=== PATIENT | male | born 1950 | race Caucasian/White ===

== ENCOUNTER 2016-10-11 12:41 | Inpatient (IN) ==
--- NOTE | 2016-10-11 13:50 | EKG Report ---
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
--- NOTE | 2016-10-11 14:22 | XRay Report ---
XR chest 2V Indication: Chest pain Comparison: Chest x-ray dated March 25, 2016 Technique: Frontal and lateral views of the chest Findings: Continued mild cardiomegaly. Chronic change of the lungs without focal consolidation, pleural effusion, or pneumothorax. Osseous and surrounding soft tissue structures appear grossly unchanged. IMPRESSION: Stable chest x-ray. Mild cardiomegaly without neo pulmonary edema. PROCEDURE INTERPRETED AT [facility] DEPARTMENT OF RADIOLOGY Final Report Signed by: Dr Wilmer Nguyen
--- NOTE | 2016-10-11 14:46 | CT Report ---
Referring physician: Axel Cope Exam: CT brain without contrast Date: October 11, 2016 Comparison: CT brain without contrast June 09, 2014 Reason: Syncope The patient is an Emergency Department patient on October 11, 2016. Technique: Axial images of the head were obtained without the use of contrast. Total DLP was 970.1 mGy*cm. Findings: No hydrocephalus or midline shift is present. There is no evidence of an acute infarction, recent intracranial hemorrhage or abnormal mass effect. Note is made of a stable punctate calcification at the cortex of the posterior right parietal lobe. The osseous structures appear intact. There is scattered mucosal thickening within the ethmoid air cells bilaterally. There is also almost complete opacification of the left maxillary sinus and thickening of the left maxillary sinus wall. This suggests chronic sinusitis. A nasal polyp is difficult to exclude within the left nasal cavity, and correlation with direct visualization is recommended. Impression: 1. No acute intracranial process is identified. 2. Chronic left maxillary sinus disease. A nasal polyp is also difficult to exclude within the left nasal cavity, and correlation with direct visualization is recommended. The CT exam was performed using one or more of the following dose reduction techniques: Automated exposure control and adjustment of the mA and/or kV according to patient size. PROCEDURE INTERPRETED AT [facility] DEPARTMENT OF RADIOLOGY Final Report Signed by: Dr. Miroslava Fields
[2016-10-11 15:27] LABS: Basophils # 0.1 10*3/uL (0.0-0.2); Basophils % 1.9 % (0.0-0.8); Eosinophils # 0.5 10*3/uL (0.0-0.87); Hemoglobin 14.4 GM/DL (14.0-18.0); Immature Granulocytes % 0.7 %; Immature Granulocytes Absolute 0.04 #; Lymphocytes # 1.5 10*3/uL (1.4-4.0); Lymphocytes % 25.3 % (21.2-54.2); Mean Corpuscular Hemoglobin 30 PG (27-34); Mean Corpuscular Volume 84.6 FL (87-102); Mean Platelet Volume 11.9 FL (9.6-12.0); Monocytes # 0.8 10*3/uL (0.11-0.8); Neutrophils # 2.9 10*3/uL (1.4-7.4); Neutrophils % 50.1 % (38.7-73.9); Platelet Count 250 T/CUMM (130-400); Red Blood Count 4.73 MC/CUMM (3.8-5.5); Red Cell Distribution Width 12.8 % (9.3-17.3); White Blood Count 5.8 T/CUMM (4-12)
[2016-10-11 15:34] LABS: PT Patient Result 10.9 SECS; Partial Thromboplastin Time 24.7 SECS (0-40)
[2016-10-11 15:41] LABS: Alanine Aminotransferase 25 U/L (16-61); Albumin 3.8 G/DL (3.4-5.0); Alkaline Phosphatase 127 U/L (45-117); Aspartate Amino Transferase 26 U/L (0-37); Blood Urea Nitrogen 24 MG/DL (7-18); Calcium 9.5 MG/DL (8.5-10.1); Glucose 302 MG/DL (74-106); Magnesium 1.9 MG/DL (1.8-2.4); Osmolality,Calculated 280.4 MOS/KG (273-304); Potassium 5.9 MMOL/L (3.5-5.1); Sodium 133 MMOL/L (136-145); Total Protein 7.5 G/DL (6.4-8.3); Troponin I Only < 0.015 NG/ML (0.00-0.045)
--- NOTE | 2016-10-11 15:53 | Emergency Department Note ---
IJenny Mantricia, am scribing for, and in the presence of, Axel Cope MD 14:41. Anatoliy Ramires Phillip K, MD, personally performed the services described in this documentation, ascribed by Shimon Alvarado in my presence, and it is both accurate and complete . Arrival - Arrival Chief Complaint: Syncope Stated Complaint: BP low,sugarf 255/276,dizzy,staggering,Heart PT ED Nursing Triage Note: pt was in the kitchen this am and was unable to stand up. pt states that his bs was 255 and blood was going up and down Mode of Arrival: Ambulatory Limitations: No Limitations Source: Patient, Significant other Time Seen by Provider: 10/11/16 13:43 - History of Present Illness HPI Narrative: Pt is a 66 y/o male arriving to ED by EMS with c/o near syncopal episode that onset this morning. Pt reports that he was in the kitchen cooking breakfast and he suddenly became lightheaded, broke out in sweats, and "staggered like he was drunk;" however, pt denies LOC. He states that he thought his blood sugar was low so he then proceeded to "chunk down" a [employer] bar; however, once checking his sugar he realized it was not the cause because it was 255. He did notice his blood pressure was low after checking it. Pt suffers with hypotension and was hospitalized a year ago because of it; pt is not on low blood pressure medications. He has a PMHx of Afib and TIA but denies MT. He states that at the time of lightheadedness, he did not have a headache but has one at time of exam and that deep breaths makes him lightheaded as well. Pt's internal medicine physician assistant is Dr. Hardy and PCP is Dr. Oquendo. He reports no other concerns. Patient had a blood pressure this morning of 90/60 after the episode of near syncope. Patient blood sugar at that time was in the mid 200s. Onset (ago): hour(s) Consistency: constant Severity: mild Severity scale (1-10): 3 Allergies/Adverse Reactions: Allergies Allergy/AdvReac Type Severity Reaction Status Date / Time DORIE Inhibitors Allergy Verified 09/18/15 08:23 Home Medications: Home Medications Medication Instructions Recorded Confirmed Type Carvedilol 25 mg PO BID 08/25/15 10/11/16 History Etodolac 500 mg PO BID W/MEALS 08/25/15 10/11/16 History Ferrous Gluconate 325 mg PO BEDTIME 08/25/15 10/11/16 History Fexofenadine [Priscilla] 180 mg PO DAILY 08/25/15 10/11/16 History Insulin Glargine [Lantus] 100 unit SUBCUT BEDTIME 08/25/15 10/11/16 History Magnesium Oxide 400 mg PO TID 08/25/15 10/11/16 History Metformin HCl 500 mg PO BID W/MEALS 08/25/15 10/11/16 History Diltiazem Cd Cap [Cardizem CD] 240 mg PO DAILY #30 capsule 08/31/15 10/11/16 Rx Aspirin [Aspir-Low] 81 mg PO DAILY 01/31/16 10/11/16 History Clobetasol Propionate [Clobetasol 1 applic TOP BID 01/31/16 10/11/16 History 0.05% Shampoo] Esomeprazole Magnesium [Nexium] 40 mg PO DAILY 01/31/16 10/11/16 History Insulin Lispro [HumaLOG] See Protocol SUBCUT ACHS 01/31/16 10/11/16 History Triamcinolone Acetonide 1 applic TOP BID 01/31/16 10/11/16 History [Triamcinolone 0.1% Cream] hydrALAZINE TAB [Apresoline Tab] 25 mg PO TID 01/31/16 10/11/16 History Cetirizine HCl [Cetirizine Tab] 10 mg PO QAM 10/11/16 10/11/16 History Exenatide Microspheres [Bydureon 2 mg SUBCUT WE 10/11/16 10/11/16 History Pen] Gemfibrozil 600 mg PO BID 10/11/16 10/11/16 History [place]-3S/Dha/Epa/Fish Oil [Fish 1 each PO BID 10/11/16 10/11/16 History Oil 1,200 mg Softgel] Review of System - Review of System 12 point system: reviewed and no additional remarkable complaints except as stated - Review of System Constitutional: Absent: chills, diaphoresis, fever Eyes: Absent: discharge, pain Head/Ears/Nose/Throat: Absent: earache, epistaxis Respiratory: Absent: cough, respiratory distress, wheezing Cardiovascular: Present: syncope (near). Absent: chest pain, palpitations, dyspnea on exertion Gastrointestinal: Absent: abdominal pain, nausea, vomiting, diarrhea Genitourinary male: Absent: urgency, dysuria Musculoskeletal: Absent: arm pain, back pain, leg pain, neck pain Skin: Absent: rash, lesions Neurological: Present: headache, vertigo. Absent: weakness Psychiatric: Absent: anxiety, depression Medical,Surgical,& Family Hx - Medical History Cardio: History of: Cardiac Dysrhythmia (A-Fib, Bradycardia), Cardiovascular Problems (Carodid surg) No history of: Pacemaker Neurology: History of: Peripheral Neuropathy, TIA No history of: Seizures Endocrine: History of: Diabetes Mellitus (IDDM), Dyslipidemia Genitourinary: No history of: Kidney Stones Gastrointestinal: History of: GERD, Gastrointestinal Bleed Musculoskeletal: History of: Amputation Hematology: History of: Anemia - Surgical History Cardiac Surgeries: Patient Denies: Cardiac Catheterization HEENT Surgeries: Surgical HX of: Eye Surgery (cataract ou) Abdominal Surgeries: Surgical HX of: Abdominal Surgery, Cholecystectomy, Colonoscopy Patient denies: Appendectomy, EGD Orthopedic Surgeries: Surgical HX of;: Orthopedic Surgery (left knee surgery) - Family History Family History: Reports;: Family Diabetes, Family Stroke - Social History Smoking Status: Never smoker Frequency of Alcohol Use: None Type of Drug Use: None Exam Vital Signs: Vital Signs Temperature 97.5 F L 10/11/16 13:30 Pulse Rate 79 10/11/16 13:45 Respiratory Rate 20 10/11/16 13:45 Blood Pressure 130/82 10/11/16 13:45 O2 Sat by Pulse Oximetry 97 10/11/16 13:45 - General General appearance: alert, in no apparent distress - Head Head exam: Present: atraumatic, normocephalic, normal inspection - Eye Eye exam: Present: normal appearance, PERRL, EOMI - ENT ENT exam: Present: normal exam, normal oropharynx, mucous membranes moist, TM's normal bilaterally, normal external ear exam - Neck Neck exam: Present: normal inspection, full ROM, trachea midline. Absent: tenderness - Chest Chest inspection: Present: normal inspection, symmetric chest wall rise. Absent : tenderness - Respiratory Respiratory exam: Present: normal lung sounds bilaterally - Cardiovascular Cardiovascular exam: Present: regular rate, normal heart sounds - Abdominal Exam Abdominal exam: Present: soft, normal bowel sounds. Absent: distention, tenderness, guarding, rebound - Extremities Exam Extremities exam: Present: normal inspection, full ROM, normal capillary refill. Absent: tenderness, pedal edema - Back Exam Back exam: Present: normal inspection, full ROM. Absent: tenderness - Neurological Exam Neurological exam: Present: alert, oriented X3, CN II-XII intact, normal gait, reflexes normal - Psychiatric Psychiatric exam: Present: normal affect, normal mood - Skin Skin exam: Present: warm, dry, intact, normal color Results - Labs CBC & BMP: 10/11/16 13:26 10/11/16 13:26 Lab Results: I have reviewed the patients labs Labs: Laboratory Tests 10/11/16 13:41 POC Glucose 294 H - EKG EKG results: interpreted by SIVA (Atrial fibrillation with nonspecific ST-T changes) - Diagnostic Findings Procedure: Chest x-ray: report reviewed by me (Stable chest x-ray. Mild cardiomegaly without neo pulmonary edema. ), CT: report reviewed by me (CT head scan shows no acute intracranial abnormality.) Disposition Clinical Impression: Near syncope, Hyperkalemia, Hypotension Case discussed with: patient, patient's physician Disposition: Still a Patient Condition: Guarded Additional Instructions: Admit to the hospitalist.
[2016-10-11] MEDS ORDERED: ONDANSETRON 4 MG/2 ML VIAL IV PRN (16:29)
[2016-10-11] MEDS ORDERED: GLUCAGON 1 MG VIAL IM PRN (16:29)
[2016-10-11] MEDS ORDERED: INSULIN REGULAR 100 UNIT/ML IV STA (16:29)
[2016-10-11] MEDS ORDERED: DEXTROSE 50% 25 GM/50 ML VIAL IV STA (16:29)
[2016-10-11] MEDS ORDERED: ACETAMINOPHEN 325 MG TABLET PO PRN (16:29)
[2016-10-11] MEDS ORDERED: SODIUM BICARBONATE 50 MEQ/50 ML VIAL IV STA (16:29)
[2016-10-11] MEDS ORDERED: SODIUM CHLORIDE 0.9% 150 ML IV STA (16:29)
[2016-10-11] MEDS ORDERED: DEXTROSE 50% 25 GM/50 ML VIAL IV PRN (16:29)
--- NOTE | 2016-10-11 16:50 | Hospitalist History & Physical ---
Assessment and Plan (1) Atrial fibrillation Status: Acute Current Visit: No (2) Hyperkalemia Status: Acute Current Visit: No (3) Near syncope Status: Acute Current Visit: Yes (4) Renal insufficiency Status: Resolved Assessment and plan: We will plan for this patient will be admission to telemetry. I have talked to the nurses in the ER and they are to to give him normal saline with amp of bicarb amp of D50 and 10 units of Humulin R insulin. Will recheck potassium in the morning. I reviewed his medications I cannot find the source of his hyperkalemia. Cardiology will be consulted for this patient he has established relationship with Dr. Hardy. 2D echo and carotid Dopplers will be ordered on this patient given his history of near syncope. Patient is not on anticoagulation currently. He was previously on it but it was discontinued. Will defer to cardiology EKG is consistent with atrial fibrillation. Current Visit: No History of Present Illness Chief complaint: Near syncope History of present illness: Mr. Avila is a 66 year old male with past medical history significant for atrial fibrillation diabetes hyperkalemia and seasonal allergies was in his normal state of health until today. Patient was standing up cooking breakfast. Patient reports all of a sudden he went dizzy and wobbly like he was drunk. He felt uneasy on his feet. Patient thought it might be his sugar he was diaphoretic. He ate some candy. His sugar was greater than 200. He ended up coming to our hospital for further evaluation. He sees Dr. Hardy with cardiology and Dr. Oquendo his primary care provider. Patient was found to be hyperkalemic with a 5.9 I was consulted to admit the patient through the emergency room for near syncopal episode. Home Medications Medication Instructions Recorded Confirmed Type Carvedilol 25 mg PO BID 08/25/15 10/11/16 History Etodolac 500 mg PO BID W/MEALS 08/25/15 10/11/16 History Ferrous Gluconate 325 mg PO BEDTIME 08/25/15 10/11/16 History Fexofenadine [Priscilla] 180 mg PO DAILY 08/25/15 10/11/16 History Insulin Glargine [Lantus] 100 unit SUBCUT BEDTIME 08/25/15 10/11/16 History Magnesium Oxide 400 mg PO TID 08/25/15 10/11/16 History Metformin HCl 500 mg PO BID W/MEALS 08/25/15 10/11/16 History Diltiazem Cd Cap [Cardizem CD] 240 mg PO DAILY #30 capsule 08/31/15 10/11/16 Rx Aspirin [Aspir-Low] 81 mg PO DAILY 01/31/16 10/11/16 History Clobetasol Propionate [Clobetasol 1 applic TOP BID 01/31/16 10/11/16 History 0.05% Shampoo] Esomeprazole Magnesium [Nexium] 40 mg PO DAILY 01/31/16 10/11/16 History Insulin Lispro [HumaLOG] See Protocol SUBCUT ACHS 01/31/16 10/11/16 History Triamcinolone Acetonide 1 applic TOP BID 01/31/16 10/11/16 History [Triamcinolone 0.1% Cream] hydrALAZINE TAB [Apresoline Tab] 25 mg PO TID 01/31/16 10/11/16 History Cetirizine HCl [Cetirizine Tab] 10 mg PO QAM 10/11/16 10/11/16 History Exenatide Microspheres [Bydureon 2 mg SUBCUT WE 10/11/16 10/11/16 History Pen] Gemfibrozil 600 mg PO BID 10/11/16 10/11/16 History [place]-3S/Dha/Epa/Fish Oil [Fish 1 each PO BID 10/11/16 10/11/16 History Oil 1,200 mg Softgel] Allergies Allergy/AdvReac Type Severity Reaction Status Date / Time DORIE Inhibitors Allergy Verified 09/18/15 08:23 Medical,Surgical,& Family Hx - Medical History Cardio: History of: Cardiac Dysrhythmia (A-Fib, Bradycardia), Cardiovascular Problems (Carodid surg) No history of: Pacemaker Neurology: History of: Peripheral Neuropathy, TIA No history of: Seizures Endocrine: History of: Diabetes Mellitus (IDDM), Dyslipidemia Genitourinary: No history of: Kidney Stones Gastrointestinal: History of: GERD, Gastrointestinal Bleed Musculoskeletal: History of: Amputation Hematology: History of: Anemia - Surgical History Cardiac Surgeries: Patient Denies: Cardiac Catheterization HEENT Surgeries: Surgical HX of: Eye Surgery (cataract ou) Abdominal Surgeries: Surgical HX of: Abdominal Surgery, Cholecystectomy, Colonoscopy Patient denies: Appendectomy, EGD Orthopedic Surgeries: Surgical HX of;: Orthopedic Surgery (left knee surgery) - Family History Family History: Reports;: Family Diabetes, Family Stroke - Social History Smoking Status: Never smoker Frequency of Alcohol Use: None Type of Drug Use: None 12 point system: reviewed and no additional remarkable complaints except as stated Exam - Constitutional Vitals: - General General appearance: alert, in no apparent distress - Head Head exam: Present: atraumatic, normocephalic, normal inspection - Eye Eye exam: Present: normal appearance, PERRL, EOMI - ENT ENT exam: Present: normal exam, normal oropharynx, mucous membranes moist, TM's normal bilaterally, normal external ear exam - Neck Neck exam: Present: normal inspection, full ROM, trachea midline. Absent: tenderness - Chest Chest inspection: Present: normal inspection, symmetric chest wall rise. Absent : tenderness - Respiratory Respiratory exam: Present: normal lung sounds bilaterally - Cardiovascular Cardiovascular exam: Present: Tachycardic - Abdominal Exam Abdominal exam: Present: soft, normal bowel sounds. Absent: distention, tenderness, guarding, rebound - Extremities Exam Extremities exam: Present: normal inspection, full ROM, normal capillary refill. Absent: tenderness, pedal edema - Back Exam Back exam: Present: normal inspection, full ROM. Absent: tenderness - Neurological Exam Neurological exam: Present: alert, oriented X3, CN II-XII intact, normal gait, reflexes normal - Psychiatric Psychiatric exam: Present: normal affect, normal mood - Skin Skin exam: Present: warm, dry, intact, normal color Results - Labs CBC & BMP: 10/11/16 13:26 10/11/16 13:26
[2016-10-11] MEDS ORDERED: DEXTROSE IV ONE (17:00)
[2016-10-11] MEDS ORDERED: SODIUM ACETATE IV ONE (17:00)
[2016-10-11] MEDS ORDERED: [UNRECOGNIZED DRUG - OTHER] IV ONE (17:00)
[2016-10-11] MEDS ORDERED: INSULIN REGULAR IV ONE (17:00)
--- NOTE | 2016-10-11 17:38 | Ultrasound Report ---
Referring physician: Kofi Michael Exam: Carotid ultrasound Date: October 11, 2016 Comparison: Carotid ultrasound February 26, 2014 Reason: Near syncope Technique: Duplex scan of the carotid arteries was performed using B-Mode/grayscale imaging and Doppler spectral analysis and color flow. Ultrasound images were captured and stored. Findings: There is calcified plaque at the carotid arteries bilaterally, most prominent at the carotid bifurcations. There is a history of right endarterectomy. The right ICA measures 0.40 cm in diameter, and the left ICA measures 0.59 cm in diameter. The peak systolic velocities are as follows: Right CCA: 43 cm/s Right proximal ICA: 52 cm/s Right mid ICA: 130 cm/s Right distal ICA: 114 cm/s Right ECA: 76 cm/s Left CCA: 47 cm/s Left proximal ICA: 34 cm/s Left distal ICA: 83 cm/s Left ECA: 384 cm/s The peak systolic ICA/CCA velocity ratios are as follows: 3.0 on the right and 1.7 on the left. Antegrade flow is present within both vertebral arteries. Impression: 1. 50-69% stenosis of the right cervical ICA. 2. Less than 50% stenosis of the left cervical ICA. 3. There is elevated velocity at the left ECA, suggesting stenosis. 4. The Society of Radiologists in Ultrasound consensus conference criteria was used. PROCEDURE INTERPRETED AT [facility] DEPARTMENT OF RADIOLOGY Final Report Signed by: Dr. Miroslava Fields
[2016-10-11] MEDS: INSULIN REGULAR 100 UNIT/ML SUBCUT SCH ×2 (19:11→21:46)
[2016-10-11] MEDS: ENOXAPARIN 40 MG/0.4 ML SYRINGE SUBCUT SCH (19:12)
[2016-10-11] MEDS: metFORMIN 500 MG TABLET PO SCH (19:12)
[2016-10-11] MEDS: MAGNESIUM OXIDE 400 MG TABLET PO SCH (21:42)
[2016-10-11] MEDS: GEMFIBROZIL 600 MG TABLET PO SCH (21:43)
[2016-10-11] MEDS: hydrALAZINE 25 MG TABLET PO SCH (21:43)
[2016-10-11] MEDS: OMEGA 3 ACID ETHYL ESTERS 1 GM CAPSULE PO SCH (21:44)
[2016-10-11] MEDS: CARVEDILOL 25 MG TABLET PO SCH (21:44)
[2016-10-11] MEDS: FERROUS GLUCONATE 324 MG TABLET PO SCH (21:45)
[2016-10-11] MEDS: INSULIN LISPRO 100 UNIT/ML SUBCUT SCH (21:46)
[2016-10-11] MEDS: INSULIN GLARGINE 100 UNIT/ML SUBCUT SCH (21:47)
[2016-10-11] MEDS: TRIAMCINOLONE 0.1% CREAM 15 GM TUBE TOP SCH (21:50)
[2016-10-11 21:59] LABS: Troponin I Only < 0.015 NG/ML (0.00-0.045)
[2016-10-12 01:10] LABS: Troponin I Only < 0.015 NG/ML (0.00-0.045)
[2016-10-12 04:52] LABS: Basophils # 0.1 10*3/uL (0.0-0.2); Basophils % 2.1 % (0.0-0.8); Eosinophils # 0.5 10*3/uL (0.0-0.87); Eosinophils % 10.3 % (0.00-10.9); Hematocrit 40.9 VOL% (42.0-52.0); Hemoglobin 14.5 GM/DL (14.0-18.0); Immature Granulocytes % 0.8 %; Immature Granulocytes Absolute 0.04 #; Lymphocytes # 1.8 10*3/uL (1.4-4.0); Lymphocytes % 37.2 % (21.2-54.2); Mean Corpuscular HGB Conc 35.5 GM/DL (32-36); Mean Corpuscular Hemoglobin 30 PG (27-34); Mean Corpuscular Volume 84.5 FL (87-102); Mean Platelet Volume 10.8 FL (9.6-12.0); Monocytes # 0.8 10*3/uL (0.11-0.8); Neutrophils # 1.6 10*3/uL (1.4-7.4); Neutrophils % 33.6 % (38.7-73.9); Platelet Count 245 T/CUMM (130-400); Red Blood Count 4.84 MC/CUMM (3.8-5.5); Red Cell Distribution Width 12.6 % (9.3-17.3); White Blood Count 4.9 T/CUMM (4-12)
[2016-10-12 05:13] LABS: Band Neutrophils 3 % (0-10); Eosinophils 10 % (0-10); Hypochromasia 1+; Lymphocytes 39 % (20-55); Platelet Estimate Adequate; Segmented Neutrophils 37 % (50-85); Total Cells Counted 100
[2016-10-12 05:20] LABS: Calcium 9.2 MG/DL (8.5-10.1); Osmolality,Calculated 285.7 MOS/KG (273-304); Potassium 4.3 MMOL/L (3.5-5.1)
[2016-10-12] MEDS ORDERED: PANTOPRAZOLE 40 MG TABLET PO SCH (09:00)
[2016-10-12] MEDS: INSULIN LISPRO 100 UNIT/ML SUBCUT SCH ×3 (09:12→21:33)
[2016-10-12] MEDS: INSULIN REGULAR 100 UNIT/ML SUBCUT SCH (09:14)
[2016-10-12] MEDS: metFORMIN 500 MG TABLET PO SCH ×3 (09:18→17:54)
[2016-10-12] MEDS ORDERED: GLUCAGON 1 MG VIAL IM PRN (09:28)
[2016-10-12] MEDS ORDERED: DEXTROSE 50% 25 GM/50 ML VIAL IV PRN (09:28)
[2016-10-12] MEDS: PANTOPRAZOLE 40 MG TABLET PO SCH (10:30)
[2016-10-12] MEDS: CETIRIZINE 10 MG TABLET PO SCH (10:30)
[2016-10-12] MEDS: OMEGA 3 ACID ETHYL ESTERS 1 GM CAPSULE PO SCH ×2 (10:32→21:37)
[2016-10-12] MEDS: MAGNESIUM OXIDE 400 MG TABLET PO SCH ×3 (10:32→21:31)
[2016-10-12] MEDS: GEMFIBROZIL 600 MG TABLET PO SCH ×2 (10:33→21:30)
[2016-10-12] MEDS: DILTIAZEM CD 240 MG CAPSULE PO SCH (10:34)
[2016-10-12] MEDS: CARVEDILOL 25 MG TABLET PO SCH ×2 (10:34→21:31)
[2016-10-12] MEDS: hydrALAZINE 25 MG TABLET PO SCH ×3 (10:35→21:31)
[2016-10-12] MEDS: ASPIRIN EC 81 MG TABLET PO SCH (10:35)
[2016-10-12] MEDS: FEXOFENADINE 180 MG TABLET PO SCH (10:35)
[2016-10-12] MEDS: TRIAMCINOLONE 0.1% CREAM 15 GM TUBE TOP SCH ×2 (10:36→21:33)
--- NOTE | 2016-10-12 16:37 | Hospitalist Progress Note ---
Assessment and Plan (1) Atrial fibrillation Status: Chronic Assessment and plan: s/p pacer rate controlled on coreg and dilt Current Visit: No (2) Renal insufficiency Status: Resolved Assessment and plan: repeat bmp in am, cont hydration Current Visit: No (3) Hypertension Status: Acute Assessment and plan: controlled Current Visit: No (4) Near syncope Status: Acute Assessment and plan: await input from cardiology, echo done but results pending, carotid disease but doubt significant to cause syncope Current Visit: Yes (5) Hyperkalemia Status: Acute Assessment and plan: 24 hour potassium, creatinine, protein, Dr Grigsby for input, ?coreg, ?RTA Current Visit: Yes Hospitalist: Subjective Interval history: Near syncope, will await input from Cardiology, reoccurring problems with Hyperkalemia, Dr. Grigsby has seen him before for emergency dialysis. Not sure why potassium remains high does not correlate with creatinine. Exam - Constitutional Vitals: Period Temp Pulse Resp BP Sys/[place] Pulse Ox Last 24 Hr 96.0 F-97.3 F 86-105 18-20 118-165/56-102 92-98 Exam: Heart Rate-[RRR] Lungs-[CTAB] GI-[+bs soft, NT] Ext-[no edema] Neuro [Motor 5/5], [alert and oriented times 3] psych [normal mood and affect] General [no acute distress] Results - Labs CBC & BMP: 10/12/16 03:50 10/12/16 03:50 Lab Results: I have reviewed the past 24 hour labs - Diagnostic Findings Procedure: CT: report reviewed by me (head ct negative ), Ultrasound: report reviewed by me (carotid stenosis )
[2016-10-12] MEDS ORDERED: ETODOLAC PO SCH (17:00)
[2016-10-12] MEDS ORDERED: BYDUREON SUBCUT SCH (17:30)
--- NOTE | 2016-10-12 17:44 | ECHO Report ---
Arnie Avila Exam Date: 10/12/2016 10:03 Referring Physician: Technologist: Korin Cook JORY Age: 66 Ht (in): 68 Wt (lb): 210 Gender: M Exam Location: [facility] Echo Indications: Atrial fibrillation, Hyperkalemia, Near syncope, IDDM BP: 138 / 64 HR: 86 Rhythm: Atrial fibrillation Technical Quality: Fair IMPRESSIONS 1. Left ventricle is normal size and systolic function ejection fraction 55%. There is mild concentric left ventricular hypertrophy. 2. Right ventricle and atrium are normal size and systolic function. 3. Left atrium is mildly dilated. 4. Aortic valve is minimally sclerotic but without any Doppler abnormalities. 5. Mitral valve is morphologically normal with trace to mild regurgitation. 6. Tricuspid and pulmonic valve are anatomically functioning normal. MEASUREMENTS (Male / Female) Normal Values 2D ECHO LV Diastolic Diameter PLAX 4.5 cm 4.2 - 5.9 / 3.9 - 5.3 cm LV Systolic Diameter PLAX 3.3 cm LV Fractional Shortening PLAX 28.1 % IVS Diastolic Thickness 1.2 cm 0.6 - 1.0 / 0.6 - 0.9 cm LVPW Diastolic Thickness 1.2 cm 0.6 - 1.0 / 0.6 - 0.9 cm RV Internal Dim ED PLAX 3.5 cm Aortic Root Diameter 3.3 cm LA Systolic Diameter LX 4.4 cm 3.0 - 4.0 / 2.7 - 3.8 cm FINDINGS Left Ventricle Normal left ventricular cavity size. Mild left ventricular hypertrophy. Left ventricular ejection fraction is estimated at 55 %. Right Ventricle The right ventricle is normal in size and function. Right Atrium The right atrium is normal in size. Left Atrium The left atrium is mildly enlarged. Mitral Valve Morphologically normal mitral valve. Trace to mild mitral valve regurgitation. Aortic Valve Aortic valve is a tricuspid structure with sclerosis and without stenosis or regurgitation. Tricuspid Valve Morphologically normal tricuspid valve without significant stenosis or regurgitation. Pulmonary artery systolic pressure is normal. Pulmonic Valve Morphologically normal pulmonic valve. Trace pulmonary valve regurgitation. Pericardium Normal pericardium without effusion. Aorta Normal ascending aorta dimension. Kofi Willson MD (Electronically Signed) Final Date: 12 Oct 2016 17:43
[2016-10-12] MEDS: ENOXAPARIN 40 MG/0.4 ML SYRINGE SUBCUT SCH (17:52)
[2016-10-12] MEDS: SODIUM CHLORIDE 0.45% 1,000 ML IV SCH (17:54)
--- NOTE | 2016-10-12 18:20 | Cardiology Consult Note ---
Alice Ramires April RN, am scribing for, and in the presence of, Kofi Willson MD 18:17. Assessment and Plan - Time spent with patient Time spent with patient: Greater than 30 minutes (Due to assessment, planning, documentation, medication review) (1) Hyperkalemia Status: Acute Assessment and plan: This is acute and may have been the cause of his symptomatology. It is interesting that he has not had a second episode of hyperkalemia spontaneously. Certainly think some questionable be some his medications but most the medications on is not typically associated with hyperkalemia. We do await nephrology is recommendations and their ideas. Current Visit: Yes (2) Near syncope Status: Acute Assessment and plan: This is unclear the etiology. Certainly the irizarry-white is irizarry to hospitalization a event monitor at home may shed some light on this. In the possibility of a Linq monitor in the future. Current Visit: Yes (3) Atrial fibrillation Status: Chronic Assessment and plan: This is chronic and ventricular response appears to well controlled. 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 Avila is a 66 year old male who is routinely followed by Dr. Hardy for history of chronic persistent atrial fibrillation, hypertension, hyperlipidemia , diabetes mellitus, peripheral vascular disease, anemia with GI bleeding from hemorrhoids, and obstructive sleep apnea. He says he does use his CPAP at night. He was hospitalized in August 2015 for hyperkalemia, acute renal failure , and bradycardia with heart rates as low as the 20s. He required temporary pacemaker and temporary dialysis. Rhythm was corrected with normalization of the potassium. Patient was sent home on a 30 day event monitor which showed chronic age fibrillation with 2.1-2.5 second pauses occurring during nocturnal hours. Echo done August 2015 with ejection fraction 60%. Surgical history includes right carotid endarterectomy, cholecystectomy, left knee surgery, tonsillectomy, bilateral cataract, temporary dialysis catheter, and temporary pacemaker. Family history is positive for father with CAD, mother with CAD cancer and hypertension. He is a former smoker who smoked in the remote past. He lives at home with his . Mr. Avila was in his usual state of health until yesterday. He was in his kitchen cooking and became dizzy, weak, and diaphoretic. He felt like he was about to pass out and propped on the refrigerator. He reports he never lost consciousness. He presented to the emergency department for further evaluation. On presentation to the emergency department his blood sugar was greater than 200. His potassium was found to be 5.9 and he was given an insulin cocktail. He denies having any chest pain, shortness of breath, or palpitations with this episode on the recent past. Cardiac biomarkers have been negative 3. His creatinine was elevated at 1.4. EKG on admission showed atrial fibrillation with heart rate of 81. Carotid ultrasound done yesterday with 50-69% stenosis of the right cervical ICA and less than 50% stenosis of the left cervical ICA. CT of the head done yesterday showed no acute intracranial process. Echo is pending. Patient is currently ambulating in room in no acute distress. He reports he feels much better without any feelings of syncope or near syncope this morning. Denies any chest pain, shortness of breath, palpitations, or dizziness at this point. Potassium this morning is 12.3, creatinine has decreased a bit to 1.2. His blood pressures were elevated on admission, they were better during the night with this morning being 135/90. quality assurance monitor currently shows atrial fibrillation with heart rates in the 90s. 6 Patient personally interviewed and examined and chart reviewed. I agree with the above evaluation and history. This patient had an episode yesterday with of weakness and near syncope that was not accompanied by palpitations chest pain shortness of breath or other symptomatology. This interesting his potassium markedly elevated without being on any real specific potassium replacement worse potassium substitution home is not on any typical medication the usual cause hyperkalemia. He had an episode like this previously with severely elevated potassium that remained unknown for the reason. His renal function is been stable. His cardiac issues of been fairly stable and Dr. Hardy is noted has followed him for his atrial fibrillation. The patient has prior carotid artery disease and right carotid endarterectomy. His carotid Dopplers reveal evidence of bilateral stenosis worse on the right than the left. Based on velocities though his right stenosis is not that severe. Nephrology has been consulted. May be making shed some light on his episodic hyperkalemia. Certainly may need to take a closer look at some of his medications. CC: Heaven Peacock MD - Home Medications and Allergies Home Medications: Home Medications Medication Instructions Recorded Confirmed Type Carvedilol 25 mg PO BID 08/25/15 10/11/16 History Etodolac 500 mg PO BID W/MEALS 08/25/15 10/11/16 History Ferrous Gluconate 325 mg PO BEDTIME 08/25/15 10/11/16 History Fexofenadine [Priscilla] 180 mg PO DAILY 08/25/15 10/11/16 History Insulin Glargine [Lantus] 100 unit SUBCUT BEDTIME 08/25/15 10/11/16 History Magnesium Oxide 400 mg PO TID 08/25/15 10/11/16 History Metformin HCl 500 mg PO BID W/MEALS 08/25/15 10/11/16 History Diltiazem Cd Cap [Cardizem CD] 240 mg PO DAILY #30 capsule 08/31/15 10/11/16 Rx Aspirin [Aspir-Low] 81 mg PO DAILY 01/31/16 10/11/16 History Clobetasol Propionate [Clobetasol 1 applic TOP BID 01/31/16 10/11/16 History 0.05% Shampoo] Esomeprazole Magnesium [Nexium] 40 mg PO DAILY 01/31/16 10/11/16 History Insulin Lispro [HumaLOG] See Protocol SUBCUT ACHS 01/31/16 10/11/16 History Triamcinolone Acetonide 1 applic TOP BID 01/31/16 10/11/16 History [Triamcinolone 0.1% Cream] hydrALAZINE TAB [Apresoline Tab] 25 mg PO TID 01/31/16 10/11/16 History Cetirizine HCl [Cetirizine Tab] 10 mg PO QAM 10/11/16 10/11/16 History Exenatide Microspheres [Bydureon 2 mg SUBCUT WE 10/11/16 10/11/16 History Pen] Gemfibrozil 600 mg PO BID 10/11/16 10/11/16 History [place]-3S/Dha/Epa/Fish Oil [Fish 1 each PO BID 05/09/17 05/09/17 History Oil 1,200 mg Softgel] Allergies/Adverse Reactions: Allergies Allergy/AdvReac Type Severity Reaction Status Date / Time DORIE Inhibitors Allergy Verified 09/18/15 08:23 - Constitutional Constitutional: Present: as per HPI - EENT Eyes: Present: requires corrective lense. Absent: blurry vision, loss of vision Ears: Present: decreased hearing. Absent: ear pain, tinnitus Nose, mouth and throat: Absent: dysphagia, epistaxis, headache(s), neck pain, sore throat - Cardiovascular Cardiovascular: Present: diaphoresis, lightheadedness. Absent: chest pain at rest, chest pain with activity, dyspnea, dyspnea on exertion, edema, radiating jaw, neck or arm pain, orthopnea, palpitations - Respiratory Respiratory: Absent: cough, dyspnea, hemoptysis, dyspnea on exertion, wheezing - Gastrointestinal Gastrointestinal: Present: other (Occasionally has small amount of bleeding from internal hemorrhoids). Absent: abdominal pain, constipation, diarrhea, nausea, vomiting - Genitourinary Genitourinary: Absent: dysuria, hematuria - Musculoskeletal Musculoskeletal: Present: back pain, limited range of motion - Neurological Neurological: Present: dizziness. Absent: abnormal gait, abnormal speech, confusion, frequent falls, headache(s), syncope (Near syncope) - Psychiatric Psychiatric: Absent: anxiety, confusion, depression - Endocrine Endocrine: Absent: fatigue - Hematologic/Lymphatic Hematologic/Lymphatic: Absent: easy bleeding, easy bruising Medical,Surgical,& Family Hx - Medical History Cardio: History of: Cardiac Dysrhythmia (A-Fib, Bradycardia), Cardiovascular Problems (Carotid surg) Neurology: History of: Peripheral Neuropathy Endocrine: History of: Diabetes Mellitus (IDDM), Dyslipidemia Renal: History of: Renal Failure (had temporary dialysis one year ago) Genitourinary: History of: Prostate Problems Gastrointestinal: History of: GERD, Gastrointestinal Bleed Musculoskeletal: History of: Amputation, Back/Neck Problems (low back strain) Hematology: History of: Anemia - Surgical History Cardiac Surgeries: Sugical HX of: Carotid Endarterectomy (right side) HEENT Surgeries: Surgical HX of: Carotid Endarterectomy (right side), Eye Surgery (cataract ou), Tonsilectomy & Adenoidectomy Abdominal Surgeries: Surgical HX of: Abdominal Surgery, Cholecystectomy, Colonoscopy Orthopedic Surgeries: Surgical HX of;: Orthopedic Surgery (left knee surgery) - Family History Family History: Reports;: Family Cancer (Mother with breast cancer), Family Diabetes (Aunts), Family Heart Disease (Mother and father), Family Hypertension (Mother) - Social History Smoking Status: Former smoker (In the remote past) Have you smoked in the last 12 months: No Frequency of Alcohol Use: Occasionally Type of Drug Use: None Marital Status: Lives With:: Spouse Functional capacity: independent ambulation Physical Examination Vital Signs Temp Pulse Resp BP Pulse Ox 97.5 F L 68 18 142/80 97 10/11/16 12:46 10/11/16 12:46 10/11/16 12:46 10/11/16 12:46 10/11/16 12:46 General: Present: Appears Well, No Apparent Distress HEENT: Present: PERRL, Mucus Membranes Moist Neck: Present: Supple Neck, Midline Trachea, No Bruit Cardiac: Present: Irregularly Regular, No Murmur Lungs: Present: Normal Breath Sounds, No Wheeze, Rales, Rhonchi Neuro: Absent: Resting Tremor, Essential Tremor Abdomen: Present: Soft, Active Bowel Sounds, Non-Tender. Absent: Distended Skin: Absent: Ulceration, Wound Musculoskeletal: Present: Decreased Range of Motion, Pain in Joint Gait: Present: Normal Gait Extremities: Present: Normal Gait, No Edema, Normal Upper Extr. Pulses, Normal Lower Extr. Pulses Result/EKG - Labs CBC & BMP: 10/12/16 03:50 10/12/16 03:50 Lab Results: I have reviewed the past 24 hour labs Labs: Laboratory Results - last 24 hr 10/11/16 10/11/16 10/11/16 18:50 20:26 20:50 WBC RBC Hgb Hct MCV MCH MCHC RDW Plt Count MPV Neut % (Auto) Lymph % (Auto) [place] % (Auto) Eos % (Auto) Baso % (Auto) Neut # (Auto) Lymph # (Auto) [place] # (Auto) Eos # (Auto) Baso # (Auto) Total Counted Immature Gran % Nucleated RBC % Immature Gran # Segmented Neutrophils Band Neutrophils Lymphocytes Monocytes Eosinophils Nucleated RBCs # Platelet Estimate Hypochromasia Morphology Comment Sodium Potassium Chloride Carbon Dioxide Anion Gap BUN Creatinine GFR Calculation BUN/Creatinine Ratio Glucose POC Glucose 314 H 363 H Calculated Osmolality Calcium Total Creatine Kinase 97 CK-MB (CK-2) 1.6 Troponin I < 0.015 10/11/16 10/12/16 10/12/16 20:50 00:18 03:50 WBC 4.9 RBC 4.84 Hgb 14.5 Hct 40.9 L MCV 84.5 L MCH 30 MCHC 35.5 RDW 12.6 Plt Count 245 MPV 10.8 Neut % (Auto) 33.6 L Lymph % (Auto) 37.2 [place] % (Auto) 16.0 H Eos % (Auto) 10.3 Baso % (Auto) 2.1 H Neut # (Auto) 1.6 Lymph # (Auto) 1.8 [place] # (Auto) 0.8 Eos # (Auto) 0.5 Baso # (Auto) 0.1 Total Counted 100 Immature Gran % 0.8 Nucleated RBC % 0.0 Immature Gran # 0.04 Segmented Neutrophils 37 L Band Neutrophils 3 Lymphocytes 39 Monocytes 11 Eosinophils 10 Nucleated RBCs # 0.00 Platelet Estimate Adequate Hypochromasia 1+ Morphology Comment Sodium Potassium 4.7 Chloride Carbon Dioxide Anion Gap BUN Creatinine GFR Calculation BUN/Creatinine Ratio Glucose POC Glucose Calculated Osmolality Calcium Total Creatine Kinase 98 CK-MB (CK-2) 1.6 Troponin I < 0.015 10/12/16 10/12/16 03:50 07:56 WBC RBC Hgb Hct MCV MCH MCHC RDW Plt Count MPV Neut % (Auto) Lymph % (Auto) [place] % (Auto) Eos % (Auto) Baso % (Auto) Neut # (Auto) Lymph # (Auto) [place] # (Auto) Eos # (Auto) Baso # (Auto) Total Counted Immature Gran % Nucleated RBC % Immature Gran # Segmented Neutrophils Band Neutrophils Lymphocytes Monocytes Eosinophils Nucleated RBCs # Platelet Estimate Hypochromasia Morphology Comment Sodium 138 Potassium 4.3 Chloride 98 Carbon Dioxide 30 Anion Gap 14.3 BUN 22 H Creatinine 1.20 GFR Calculation 77 BUN/Creatinine Ratio 18.00 Glucose 250 H POC Glucose 213 H Calculated Osmolality 285.7 Calcium 9.2 Total Creatine Kinase CK-MB (CK-2) Troponin I - Impressions Impressions: The patient's ECG revealed atrial fibrillation with controlled ventricular response without any real pacific acute changes. - EKG EKG results: interpreted by me EKG shows: atrial fibrillation I, Kofi Willson MD, personally performed the services described in this documentation, ascribed by Magdalena Jenkins RN in my presence, and it is both accurate and complete 819 .
[2016-10-12] MEDS ORDERED: CLOBETASOL 0.05% TOP SCH (21:00)
[2016-10-12] MEDS: FERROUS GLUCONATE 324 MG TABLET PO SCH (21:32)
[2016-10-12] MEDS: INSULIN GLARGINE 100 UNIT/ML SUBCUT SCH (21:32)
[2016-10-13] MEDS: SODIUM CHLORIDE 0.45% 1,000 ML IV SCH ×2 (04:10→12:42)
[2016-10-13 06:10] LABS: Basophils # 0.1 10*3/uL (0.0-0.2); Basophils % 1.8 % (0.0-0.8); Eosinophils # 0.7 10*3/uL (0.0-0.87); Eosinophils % 12.2 % (0.00-10.9); Hematocrit 39.7 VOL% (42.0-52.0); Hemoglobin 13.9 GM/DL (14.0-18.0); Immature Granulocytes % 1.1 %; Immature Granulocytes Absolute 0.06 #; Lymphocytes # 1.9 10*3/uL (1.4-4.0); Lymphocytes % 35.2 % (21.2-54.2); Mean Corpuscular Hemoglobin 30 PG (27-34); Mean Corpuscular Volume 85.9 FL (87-102); Mean Platelet Volume 10.8 FL (9.6-12.0); Monocytes # 0.9 10*3/uL (0.11-0.8); Monocytes % 16.9 % (1.7-12.7); Neutrophils # 1.8 10*3/uL (1.4-7.4); Neutrophils % 32.8 % (38.7-73.9); Platelet Count 228 T/CUMM (130-400); Red Blood Count 4.62 MC/CUMM (3.8-5.5); Red Cell Distribution Width 12.8 % (9.3-17.3); White Blood Count 5.4 T/CUMM (4-12)
[2016-10-13 06:35] LABS: Eosinophils 10 % (0-10); Hypochromasia Slight; Lymphocytes 34 % (20-55); Microcytosis 1+; Platelet Estimate Adequate; Segmented Neutrophils 44 % (50-85); Total Cells Counted 100
[2016-10-13 06:48] LABS: Calcium 9.1 MG/DL (8.5-10.1); Magnesium 1.8 MG/DL (1.8-2.4); Osmolality,Calculated 283.5 MOS/KG (273-304); Potassium 4.4 MMOL/L (3.5-5.1); Risk Ratio 6.77; VLDL CHOLESTEROL 109.6 MG/DL
--- NOTE | 2016-10-13 09:02 | Vascular Surgery Consult Note ---
History of Present Illness Chief complaint: carotid stenosis History of present illness: Mr. Avila is a 66 year old male Mr. Arnie Avila is admitted with syncopal episode of unknown etiology. During his evaluation carotid ultrasound has been done and indicates a 50-69% stenosis of the right internal carotid and less than 50% stenosis of the left with calcified plaque at each carotid bifurcation. Mr. Avila's past medical history is significant in that he had a right carotid endarterectomy by Dr. Hameed at least 10 years ago for very high-grade stenosis. He does recall an episode of left arm weakness lasting for period of time described as a TIA but had no specific findings to indicate a need for aggressive intervention at that time. This current episode sounds more like mild syncope but nothing lateralizing to suggest a TIA. He states he has been followed reasonably closely by Dr. Hameed as well as Dr. Deleon and Dr. Oquendo with routine checkups although he has not had an ultrasound in several years. On examination today he has no carotid bruits no neurologic deficit and no indication of significant carotid occlusive disease at this time. My recommendation for Mr. Avila since he is well aware of the nature of carotid disease and is followed by Dr. Oquendo closely to continue with his routine follow-ups with Dr. Oquendo and I would recommend a carotid ultrasound every 2-3 years unless he develops bruits or some symptoms of more closely suggest a lateralizing TIA. Antiplatelet therapy with aspirin and possibly Plavix would be appropriate Home Medications Medication Instructions Recorded Confirmed Type Carvedilol 25 mg PO BID 08/25/15 10/11/16 History Etodolac 500 mg PO BID W/MEALS 08/25/15 10/11/16 History Ferrous Gluconate 325 mg PO BEDTIME 08/25/15 10/11/16 History Fexofenadine [Priscilla] 180 mg PO DAILY 08/25/15 10/11/16 History Insulin Glargine [Lantus] 100 unit SUBCUT BEDTIME 08/25/15 10/11/16 History Magnesium Oxide 400 mg PO TID 08/25/15 10/11/16 History Metformin HCl 500 mg PO BID W/MEALS 08/25/15 10/11/16 History Diltiazem Cd Cap [Cardizem CD] 240 mg PO DAILY #30 capsule 08/31/15 10/11/16 Rx Aspirin [Aspir-Low] 81 mg PO DAILY 01/31/16 10/11/16 History Clobetasol Propionate [Clobetasol 1 applic TOP BID 01/31/16 10/11/16 History 0.05% Shampoo] Esomeprazole Magnesium [Nexium] 40 mg PO DAILY 01/31/16 10/11/16 History Insulin Lispro [HumaLOG] See Protocol SUBCUT ACHS 01/31/16 10/11/16 History Triamcinolone Acetonide 1 applic TOP BID 01/31/16 10/11/16 History [Triamcinolone 0.1% Cream] hydrALAZINE TAB [Apresoline Tab] 25 mg PO TID 01/31/16 10/11/16 History Cetirizine HCl [Cetirizine Tab] 10 mg PO QAM 10/11/16 10/11/16 History Exenatide Microspheres [Bydureon 2 mg SUBCUT WE 10/11/16 10/11/16 History Pen] Gemfibrozil 600 mg PO BID 10/11/16 10/11/16 History [place]-3S/Dha/Epa/Fish Oil [Fish 1 each PO BID 10/11/16 10/11/16 History Oil 1,200 mg Softgel] Allergies Allergy/AdvReac Type Severity Reaction Status Date / Time DORIE Inhibitors Allergy Verified 09/18/15 08:23 Medical,Surgical,& Family Hx - Medical History Cardio: History of: Cardiac Dysrhythmia (A-Fib, Bradycardia), Cardiovascular Problems (Carotid surg) No history of: Pacemaker Neurology: History of: Peripheral Neuropathy, TIA No history of: Seizures Endocrine: History of: Diabetes Mellitus (IDDM), Dyslipidemia Renal: History of: Renal Failure (had temporary dialysis one year ago) Genitourinary: History of: Prostate Problems No history of: Kidney Stones Gastrointestinal: History of: GERD, Gastrointestinal Bleed Musculoskeletal: History of: Amputation, Back/Neck Problems (low back strain) Hematology: History of: Anemia - Surgical History Cardiac Surgeries: Sugical HX of: Carotid Endarterectomy (right side) Patient Denies: Cardiac Catheterization HEENT Surgeries: Surgical HX of: Carotid Endarterectomy (right side), Eye Surgery (cataract ou), Tonsilectomy & Adenoidectomy Abdominal Surgeries: Surgical HX of: Abdominal Surgery, Cholecystectomy, Colonoscopy Patient denies: Appendectomy, EGD Orthopedic Surgeries: Surgical HX of;: Orthopedic Surgery (left knee surgery) - Family History Family History: Reports;: Family Cancer (Mother with breast cancer), Family Diabetes (Aunts), Family Heart Disease (Mother and father), Family Hypertension (Mother), Family Stroke - Social History Smoking Status: Former smoker (In the remote past) Frequency of Alcohol Use: Occasionally Type of Drug Use: None Exam - Constitutional Vitals: Period Temp Pulse Resp BP Sys/[place] Pulse Ox Last 24 Hr 97.0 F-98.1 F 83-96 18-20 102-153/44-88 93-99 Results - Labs CBC & BMP: 10/13/16 05:22 10/13/16 05:23
[2016-10-13] MEDS: INSULIN LISPRO 100 UNIT/ML SUBCUT SCH ×3 (09:33→11:36)
[2016-10-13] MEDS: GEMFIBROZIL 600 MG TABLET PO SCH (10:12)
[2016-10-13] MEDS: ASPIRIN EC 81 MG TABLET PO SCH (10:12)
[2016-10-13] MEDS: FEXOFENADINE 180 MG TABLET PO SCH (10:13)
[2016-10-13] MEDS: MAGNESIUM OXIDE 400 MG TABLET PO SCH ×2 (10:13→15:00)
[2016-10-13] MEDS: OMEGA 3 ACID ETHYL ESTERS 1 GM CAPSULE PO SCH (10:13)
[2016-10-13] MEDS: metFORMIN 500 MG TABLET PO SCH (10:13)
[2016-10-13] MEDS: CARVEDILOL 25 MG TABLET PO SCH (10:14)
[2016-10-13] MEDS: PANTOPRAZOLE 40 MG TABLET PO SCH (10:14)
[2016-10-13] MEDS: hydrALAZINE 25 MG TABLET PO SCH ×2 (10:14→15:00)
[2016-10-13] MEDS: CETIRIZINE 10 MG TABLET PO SCH (10:14)
[2016-10-13] MEDS: DILTIAZEM CD 240 MG CAPSULE PO SCH (10:15)
[2016-10-13] MEDS: TRIAMCINOLONE 0.1% CREAM 15 GM TUBE TOP SCH (10:19)
--- NOTE | 2016-10-13 10:50 | Discharge Summary ---
Hospital Course - Hospital Course Hospital Course: Mr. Avila is a 66 year old male with past medical history significant for atrial fibrillation, diabetes, hyperkalemia and seasonal allergies was in his normal state of health until today. Patient was standing up cooking and had a near syncope episode. Patient had hyperkalemic with a 5.9 on admission which has happened before he passed out last time. No cause was found during previous admission for hyperkalemia. All meds were reviewed. Dr. Paige will see him today. Dr. Willson from Cardiology has seen him and recommends an event monitor. Echo was normal. Carotid dopplers show a right ICA of 50 to 69% and less than 50% on left cervical ICA. Dr. Ko has seen him and does not feel it is responsible for his near syncope but recommends carotid dopplers every 2 years and adding plavix to medication. I am currently doing a 24-hour urine collection for potassium. Patient's blood sugars are not well controlled. Have increased his metformin. His blood pressure is well controlled. Patient still in atrial fib but is rate controlled. Patient was on Pradaxa at that it was stopped due to unexplained anemia. Patient was told to return immediately to the emergency room if he developed any bleeding on Plavix. Patient will be discharged home today with follow-up with Dr. Royal Dhillon or Dr. Grigsby and Dr. Oquendo. - Time spent with patient Time with patient DS: Greater than 30 minutes (60 min) Diagnosis - Discharge Diagnosis (1) Atrial fibrillation Status: Chronic (2) Renal insufficiency Status: Resolved (3) Hypertension Status: Acute (4) Near syncope Status: Acute (5) Hyperkalemia Status: Acute Discharge Plan - Discharge Data Disposition: Disch To Home/Self Care Condition at Discharge: Stable Discharge Diet: diabetic diet Activity: resume usual activities as tolerated Hygiene: no restrictions Weight Bearing at Discharge: full weight bearing - Discharge Medications New Clopidogrel [Plavix] 75 mg PO DAILY #30 tablet Continue Carvedilol 25 mg PO BID Insulin Glargine [Lantus] 100 unit SUBCUT BEDTIME Ferrous Gluconate 325 mg PO BEDTIME Fexofenadine [Priscilla] 180 mg PO DAILY Magnesium Oxide 400 mg PO TID Diltiazem Cd Cap [Cardizem CD] 240 mg PO DAILY #30 capsule Clobetasol Propionate [Clobetasol 0.05% Shampoo] 1 applic TOP BID Triamcinolone Acetonide [Triamcinolone 0.1% Cream] 1 applic TOP BID Esomeprazole Magnesium [Nexium] 40 mg PO DAILY hydrALAZINE TAB [Apresoline Tab] 25 mg PO TID Aspirin [Aspir-Low] 81 mg PO DAILY Insulin Lispro [HumaLOG] See Protocol SUBCUT ACHS [place]-3S/Dha/Epa/Fish Oil [Fish Oil 1,200 mg Softgel] 1 each PO BID Gemfibrozil 600 mg PO BID Cetirizine HCl [Cetirizine Tab] 10 mg PO QAM Metformin HCl 1,000 mg PO BID W/MEALS #120 tablet Exenatide Microspheres [Bydureon Pen] 2 mg SUBCUT WE Discontinued Etodolac 500 mg PO BID W/MEALS - Follow Up or Referral Follow Up: Jimmie Hardy MD [Physician] - 2 Weeks Greg Paige MD [Physician] - 1 Month Rashi Oquendo MD [Primary Care Provider] - 2 Weeks - Forms/Instructions Additional Discharge Instructions: Carotid ultrasound every 2 years. Event monitor for 30 days. Discharge after seen by Cardiology and Renal Exam - Constitutional Vitals: Period Temp Pulse Resp BP Sys/[place] Pulse Ox Last 24 Hr 97.0 F-98.1 F 83-96 18-20 102-153/44-88 93-99 General appearance: normal weight, no acute distress - Respiratory Respiratory exam: Present: clear to auscultation bilaterally. Absent: rhonchi, wheezes - Cardiovascular Cardiovascular exam: Present: regular rate and rhythm. Absent: systolic murmur - GI/Abdominal GI/Abdominal exam: Present: normal bowel sounds, soft. Absent: tenderness - Extremities Exam Extremities exam: Present: normal inspection, normal capillary refill - Neurological Exam Neurological exam: Present: alert, oriented X3 Discharge Results Procedures and tests throughout hospitalization: Pending Orders 10/12/16 16:39 Potassium 24 Hour Urine Routine 10/12/16 16:51 Creatinine 24 Hr Urine Stat Total Protein 24 Hr Urine Stat 10/14/16 04:00 BMP w/ Mg [Basic Metabolic Panel w/Mg] IN AM CBC [Comp Blood Count Auto Diff] IN AM Labs on day of discharge: Labs from last 24 hours 10/13/16 10/13/16 10/13/16 07:42 05:23 05:22 WBC 5.4 RBC 4.62 Hgb 13.9 L Hct 39.7 L MCV 85.9 L MCH 30 MCHC 35.0 RDW 12.8 Plt Count 228 MPV 10.8 Neut % (Auto) 32.8 L Lymph % (Auto) 35.2 Bureau % (Auto) 16.9 H Eos % (Auto) 12.2 H Baso % (Auto) 1.8 H Neut # (Auto) 1.8 Lymph # (Auto) 1.9 Bureau # (Auto) 0.9 H Eos # (Auto) 0.7 Baso # (Auto) 0.1 Total Counted 100 Immature Gran % 1.1 Nucleated RBC % 0.0 Immature Gran # 0.06 Segmented Neutrophils 44 L Lymphocytes 34 Monocytes 12 Eosinophils 10 Nucleated RBCs # 0.00 Platelet Estimate Adequate Hypochromasia Slight Microcytosis 1+ Sodium 139 Potassium 4.4 Chloride 100 Carbon Dioxide 30 Anion Gap 13.4 BUN 21 H Creatinine 1.10 GFR Calculation 85 BUN/Creatinine Ratio 19.00 Glucose 179 H POC Glucose 170 H Calculated Osmolality 283.5 Calcium 9.1 Magnesium 1.8 Triglycerides 548 H Cholesterol 149 LDL Cholesterol 67.0 VLDL Cholesterol 109.6 HDL Cholesterol 22 L Heart Disease Risk Ratio 6.77 Free T4 TSH 3rd Generation 10/12/16 10/12/16 10/12/16 Unknown Unknown 20:17 WBC RBC Hgb Hct MCV MCH MCHC RDW Plt Count MPV Neut % (Auto) Lymph % (Auto) Bureau % (Auto) Eos % (Auto) Baso % (Auto) Neut # (Auto) Lymph # (Auto) Bureau # (Auto) Eos # (Auto) Baso # (Auto) Total Counted Immature Gran % Nucleated RBC % Immature Gran # Segmented Neutrophils Lymphocytes Monocytes Eosinophils Nucleated RBCs # Platelet Estimate Hypochromasia Microcytosis Sodium Potassium Chloride Carbon Dioxide Anion Gap BUN Creatinine GFR Calculation BUN/Creatinine Ratio Glucose POC Glucose 342 H Calculated Osmolality Calcium Magnesium Triglycerides Cholesterol LDL Cholesterol VLDL Cholesterol HDL Cholesterol Heart Disease Risk Ratio Free T4 0.91 TSH 3rd Generation 3.580 10/12/16 10/12/16 16:36 11:36 WBC RBC Hgb Hct MCV MCH MCHC RDW Plt Count MPV Neut % (Auto) Lymph % (Auto) Bureau % (Auto) Eos % (Auto) Baso % (Auto) Neut # (Auto) Lymph # (Auto) Bureau # (Auto) Eos # (Auto) Baso # (Auto) Total Counted Immature Gran % Nucleated RBC % Immature Gran # Segmented Neutrophils Lymphocytes Monocytes Eosinophils Nucleated RBCs # Platelet Estimate Hypochromasia Microcytosis Sodium Potassium Chloride Carbon Dioxide Anion Gap BUN Creatinine GFR Calculation BUN/Creatinine Ratio Glucose POC Glucose 286 H 313 H Calculated Osmolality Calcium Magnesium Triglycerides Cholesterol LDL Cholesterol VLDL Cholesterol HDL Cholesterol Heart Disease Risk Ratio Free T4 TSH 3rd Generation DS: Provider Date of admission: 10/11/16 16:05 Primary care physician: Rashi Oquendo MD Attending physician on admission: Kofi Michael MD Consults: 10/11/16 16:29 Consult to Physician [CONS] Routine Comment: near syncope Consulting Provider: Kofi Willson When should Consulting Provider be notified: Now Consult to Specialist Group: Cardiology Person Notified: TARI Date Notified: 10/12/16 Time Notified: 07:45 10/12/16 16:30 Consult to Physician [CONS] Routine Comment: reoccurring hyperkalemia Consulting Provider: Davon Grigsby Jr. 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
[2016-10-13 11:49] VITALS: BP 139/75
--- NOTE | 2016-10-13 12:24 | Event Note ---
At discharge patient will need a 30 day cardiac event monitor. Spoke to Barby Mccord at [facility] and patient has been instructed to go to [facility] 5th floor after being discharged in order to have monitor put on. Patient and his both verbalize understanding of this.
--- NOTE | 2016-10-13 13:18 | Cardiology Progress Note ---
Assessment and Plan (1) Hyperkalemia Status: Acute Assessment and plan: Etiology unknown but workup is underway. Nephrology's opinion is pending. Current Visit: Yes (2) Near syncope Status: Acute Assessment and plan: This is unclear the etiology. Certainly this may be associated with hyperkalemia or some type of rhythm disturbance or both. We will place a 30 day monitor. Current Visit: Yes (3) Atrial fibrillation Status: Chronic Assessment and plan: This is chronic and ventricular response appears to well controlled. Continue his present medications. Current Visit: Yes (4) Diabetes mellitus Status: Chronic Current Visit: Yes Qualifiers: Diabetes mellitus type: type 2 Chronic kidney disease stage: stage 2 (mild ) Cardiology - PN: Subj Interval history: Patient done well since admission without any further symptomatology of weakness or dizziness. His telemetry continued to reveal normal sinus rhythm without any tachycardia or bradycardia arrhythmias. He is had no shortness of breath chest discomfort or other symptomatology. He has chronic atrial fibrillation his ventricular rates and responses been appropriate. His potassium is now normal and remains so with 3 more sample since admission sample. We are awaiting nephrology's evaluation. Evaluation for etiologies of this is underway. From a cardiac standpoint I think he is stable without any evidence of an acute cardiac event. Certainly this may be a dysrhythmia some sort and recommend 30 day monitor which we have already made arrangements for him to probably on this afternoon or in the morning. Have discussed this with the patient is . Exam (Progress Note) - Constitutional Vitals: Period Temp Pulse Resp BP Sys/[place] Pulse Ox Last 24 Hr 97.0 F-98.1 F 83-96 18-20 102-153/44-88 93-99 Exam: General appearance: normal weight, no acute distress HEENT exam: normal inspection, atraumatic Neck exam: normal inspection no JVD. No carotid bruit. Trachea is in midline Respiratory/lungs exam: clear to auscultation bilaterally good air movement. Cardiovascular exam: Irregular rhythm, no murmur or gallop or rub. No precordial lift. Chest wall exam: nontender GI/Abdominal exam: normal bowel sounds, soft, nontender, no abdominal bruits or pulsatile masses. Extremeties/musculoskeletal: normal inspection without edema or cyanosis. Neurological exam: alert, oriented X3, no focal deficits Psychiatric exam: normal affect, normal mood. Cognitive function is grossly normal. Skin exam: normal color, warm Result/EKG - Labs CBC & BMP: 10/13/16 05:22 10/13/16 05:23 Lab Results: I have reviewed the past 24 hour labs Labs: Laboratory Results - last 24 hr 10/12/16 10/12/16 10/12/16 16:36 20:17 Unknown WBC RBC Hgb Hct MCV MCH MCHC RDW Plt Count MPV Neut % (Auto) Lymph % (Auto) [place] % (Auto) Eos % (Auto) Baso % (Auto) Neut # (Auto) Lymph # (Auto) [place] # (Auto) Eos # (Auto) Baso # (Auto) Total Counted Immature Gran % Nucleated RBC % Immature Gran # Segmented Neutrophils Lymphocytes Monocytes Eosinophils Nucleated RBCs # Platelet Estimate Hypochromasia Microcytosis Sodium Potassium Chloride Carbon Dioxide Anion Gap BUN Creatinine GFR Calculation BUN/Creatinine Ratio Glucose POC Glucose 286 H 342 H Calculated Osmolality Calcium Magnesium Triglycerides Cholesterol LDL Cholesterol VLDL Cholesterol HDL Cholesterol Heart Disease Risk Ratio Free T4 0.91 TSH 3rd Generation 10/12/16 10/13/16 10/13/16 Unknown 05:22 05:23 WBC 5.4 RBC 4.62 Hgb 13.9 L Hct 39.7 L MCV 85.9 L MCH 30 MCHC 35.0 RDW 12.8 Plt Count 228 MPV 10.8 Neut % (Auto) 32.8 L Lymph % (Auto) 35.2 [place] % (Auto) 16.9 H Eos % (Auto) 12.2 H Baso % (Auto) 1.8 H Neut # (Auto) 1.8 Lymph # (Auto) 1.9 [place] # (Auto) 0.9 H Eos # (Auto) 0.7 Baso # (Auto) 0.1 Total Counted 100 Immature Gran % 1.1 Nucleated RBC % 0.0 Immature Gran # 0.06 Segmented Neutrophils 44 L Lymphocytes 34 Monocytes 12 Eosinophils 10 Nucleated RBCs # 0.00 Platelet Estimate Adequate Hypochromasia Slight Microcytosis 1+ Sodium 139 Potassium 4.4 Chloride 100 Carbon Dioxide 30 Anion Gap 13.4 BUN 21 H Creatinine 1.10 GFR Calculation 85 BUN/Creatinine Ratio 19.00 Glucose 179 H POC Glucose Calculated Osmolality 283.5 Calcium 9.1 Magnesium 1.8 Triglycerides 548 H Cholesterol 149 LDL Cholesterol 67.0 VLDL Cholesterol 109.6 HDL Cholesterol 22 L Heart Disease Risk Ratio 6.77 Free T4 TSH 3rd Generation 3.580 10/13/16 10/13/16 07:42 11:03 WBC RBC Hgb Hct MCV MCH MCHC RDW Plt Count MPV Neut % (Auto) Lymph % (Auto) [place] % (Auto) Eos % (Auto) Baso % (Auto) Neut # (Auto) Lymph # (Auto) [place] # (Auto) Eos # (Auto) Baso # (Auto) Total Counted Immature Gran % Nucleated RBC % Immature Gran # Segmented Neutrophils Lymphocytes Monocytes Eosinophils Nucleated RBCs # Platelet Estimate Hypochromasia Microcytosis Sodium Potassium Chloride Carbon Dioxide Anion Gap BUN Creatinine GFR Calculation BUN/Creatinine Ratio Glucose POC Glucose 170 H 289 H Calculated Osmolality Calcium Magnesium Triglycerides Cholesterol LDL Cholesterol VLDL Cholesterol HDL Cholesterol Heart Disease Risk Ratio Free T4 TSH 3rd Generation - Impressions Impressions: Telemetry with atrial fibrillation controlled ventricular response. Specialty Discharge - Follow Up or Referrals Follow up with: Rashi Oquendo MD [Primary Care Provider] - 2 Weeks Chayo Hardy MD [Physician] - 2 Weeks Greg Paige MD [Physician] - 1 Month
--- NOTE | 2016-10-13 15:03 | Nephrology Consult Note ---
History of Present Illness Chief complaint: Hyperkalemia History of present illness: Mr. Avila is a 66 year old male with long-standing diabetes mellitus on insulin. He also has atrial fibrillation and takes Coreg 25 mg twice daily. He had an episode of near syncope and staggering gait followed by intense diaphoresis. He was brought to the emergency room potassium was 5.9 with no acidosis and with a normal creatinine. Significantly he had an episode of him in August of last year with hyperkalemia and he was taking the beta-ben at that time. That episode required vigorous treatment including an episode of dialysis. With neither episode did he notice any unusual precipitating factors such as significant exercise or dietary alteration etc. There is no history of kidney disease. On exam he is in no distress is able to give a clear history. His heart without rub or gallop lungs are clear the abdomen soft nontender extremities without edema. He is in the midst of collecting a 24-hour urine will add potassium to that and see how much potassium is excreting. Impression 2 episodes of hyperkalemia the one in the last August was more significant than the current episode. One wonders if the nonselective beta ben Coreg is playing a role in these episodes. He is using that for blood pressure control and rate control with his atrial fib. We will make an appointment to see him in 1-2 weeks and follow-up these lab values. It would be great if we could back off Coreg and possibly go to a beta 1 selective ben if that would be tolerated since there is no obvious cause for his hyperkalemia and the beta blockade can potentially do it under the right circumstances. Home Medications Medication Instructions Recorded Confirmed Type Carvedilol 25 mg PO BID 08/25/15 10/11/16 History Ferrous Gluconate 325 mg PO BEDTIME 08/25/15 10/11/16 History Fexofenadine [Priscilla] 180 mg PO DAILY 08/25/15 10/11/16 History Insulin Glargine [Lantus] 100 unit SUBCUT BEDTIME 08/25/15 10/11/16 History Magnesium Oxide 400 mg PO TID 08/25/15 10/11/16 History Diltiazem Cd Cap [Cardizem CD] 240 mg PO DAILY #30 capsule 08/31/15 10/11/16 Rx Aspirin [Aspir-Low] 81 mg PO DAILY 01/31/16 10/11/16 History Clobetasol Propionate [Clobetasol 1 applic TOP BID 01/31/16 10/11/16 History 0.05% Shampoo] Esomeprazole Magnesium [Nexium] 40 mg PO DAILY 01/31/16 10/11/16 History Insulin Lispro [HumaLOG] See Protocol SUBCUT ACHS 01/31/16 10/11/16 History Triamcinolone Acetonide 1 applic TOP BID 01/31/16 10/11/16 History [Triamcinolone 0.1% Cream] hydrALAZINE TAB [Apresoline Tab] 25 mg PO TID 01/31/16 10/11/16 History Cetirizine HCl [Cetirizine Tab] 10 mg PO QAM 10/11/16 10/11/16 History Exenatide Microspheres [Bydureon 2 mg SUBCUT WE 10/11/16 10/11/16 History Pen] Gemfibrozil 600 mg PO BID 10/11/16 10/11/16 History [place]-3S/Dha/Epa/Fish Oil [Fish 1 each PO BID 10/11/16 10/11/16 History Oil 1,200 mg Softgel] Clopidogrel [Plavix] 75 mg PO DAILY #30 tablet 10/13/16 Rx Metformin HCl 1,000 mg PO BID W/MEALS #120 tablet 10/13/16 Rx Allergies Allergy/AdvReac Type Severity Reaction Status Date / Time DORIE Inhibitors Allergy Verified 09/18/15 08:23 Medical,Surgical,& Family Hx - Medical History Cardio: History of: Cardiac Dysrhythmia (A-Fib, Bradycardia), Cardiovascular Problems (Carotid surg) No history of: Pacemaker Neurology: History of: Peripheral Neuropathy, TIA No history of: Seizures Endocrine: History of: Diabetes Mellitus (IDDM), Dyslipidemia Renal: History of: Renal Failure (had temporary dialysis one year ago) Genitourinary: History of: Prostate Problems No history of: Kidney Stones Gastrointestinal: History of: GERD, Gastrointestinal Bleed Musculoskeletal: History of: Amputation, Back/Neck Problems (low back strain) Hematology: History of: Anemia - Surgical History Cardiac Surgeries: Sugical HX of: Carotid Endarterectomy (right side) Patient Denies: Cardiac Catheterization HEENT Surgeries: Surgical HX of: Carotid Endarterectomy (right side), Eye Surgery (cataract ou), Tonsilectomy & Adenoidectomy Abdominal Surgeries: Surgical HX of: Abdominal Surgery, Cholecystectomy, Colonoscopy Patient denies: Appendectomy, EGD Orthopedic Surgeries: Surgical HX of;: Orthopedic Surgery (left knee surgery) - Family History Family History: Reports;: Family Cancer (Mother with breast cancer), Family Diabetes (Aunts), Family Heart Disease (Mother and father), Family Hypertension (Mother), Family Stroke - Social History Smoking Status: Former smoker (In the remote past) Frequency of Alcohol Use: Occasionally Type of Drug Use: None Review of Systems 12 point system: reviewed and no additional remarkable complaints except as stated Exam - Vital Signs Vital signs: Period Temp Pulse Resp BP Sys/[place] Pulse Ox Last 24 Hr 97.0 F-98.1 F 83-96 18-20 102-153/44-88 93-99 - General Appearance General appearance: well-developed, well-nourished, appears started age EENT: ATNC Neck: no JVD, no thyromegaly, no carotid bruit, supple Respiratory: no kyphosis, no scoliosis Cardiology: no murmurs, no rub, no gallops, no edema, regular rate, regular rhythm, normal S1, normal S2 Gastrointestinal: normoactive bowel sounds Integumentary: no rash, warm and dry Neurologic: no focal deficit, no asterixis, alert and oriented x3, reflexes 2+ and symmetric, gait normal, strength 5/5 Musculoskeletal: no deformities, no erythema, no cyanosis, no clubbing Psychiatric: mood/affect appropriate, cooperative Results - Labs CBC & BMP: 10/13/16 05:22 10/13/16 05:23 Assessment and Plan - Time spent with patient Time spent with patient: Greater than 30 minutes Specialty Discharge - Follow Up or Referrals Follow up with: Rashi Oquendo MD [Primary Care Provider] - 10/19/16 7:30 am Chayo Hardy MD [Physician] - 11/02/16 2:10 pm Greg Paige MD [Physician] - 1 Month - Speciality Discharge Instructions Nephrology Instructions: Follow results of 24-hour urine including urine potassium excretion. We will see him in the office and 1-2 weeks. Hopefully he can come off the Coreg and go to a beta 1 selective ben if reasonable
[2016-10-13 18:34] LABS: Collection Time,Urine 24 HOURS; Total Volume,Urine 4200 ML (400-2000)
[2016-10-13 19:14] LABS: Creatinine 24 Hr Urine Result 1.13 G/24HR (0.95-2.49)
[2016-10-13 19:22] LABS: Total Protein 24 Hr Ur Result 252 MG/24HR (0-149.1)
== END 2016-10-13 16:10 | disposition home or self-care (01) | DRG 641 ==
LOC: N.ED 12:41 → N.EDINP 16:05 → SUATTDRO 16:05 → N.TELEN 16:41
PROVIDERS: ADMIT Internal Medicine; ATTEND Internal Medicine

== ENCOUNTER 2018-02-01 06:59 | Inpatient (IN) ==
[2018-01-30 15:24] LABS: Basophils # 0.1 10*3/uL (0.0-0.2); Basophils % 1.4 % (0.0-0.8); Eosinophils # 0.4 10*3/uL (0.0-0.87); Eosinophils % 6.8 % (0.00-10.9); Hematocrit 38.8 VOL% (42.0-52.0); Hemoglobin 13.7 GM/DL (14.0-18.0); Immature Granulocytes % 1.4 %; Immature Granulocytes Absolute 0.08 #; Lymphocytes # 1.8 10*3/uL (1.4-4.0); Lymphocytes % 31.2 % (21.2-54.2); Mean Corpuscular HGB Conc 35.3 GM/DL (32-36); Mean Corpuscular Hemoglobin 30 PG (27-34); Mean Corpuscular Volume 85.7 FL (87-102); Mean Platelet Volume 10.3 FL (9.6-12.0); Monocytes # 0.7 10*3/uL (0.11-0.8); Monocytes % 12.1 % (1.7-12.7); Neutrophils # 2.7 10*3/uL (1.4-7.4); Neutrophils % 47.1 % (38.7-73.9); Platelet Count 244 T/CUMM (130-400); Red Blood Count 4.53 MC/CUMM (3.8-5.5); Red Cell Distribution Width 13.8 % (9.3-17.3); White Blood Count 5.7 T/CUMM (4-12)
[2018-01-30 15:43] LABS: Albumin 3.6 G/DL (3.4-5.0); Bilirubin,Total 0.5 MG/DL (0.2-1.0); Calcium 8.8 MG/DL (8.5-10.1); Potassium 4.7 MMOL/L (3.5-5.1); Total Protein 7.2 G/DL (6.4-8.3)
[~2018-02-01 06:59] MED LIST: ceFAZolin 1,000 MG in SYRINGE 1 EACH IV ONE
[2018-02-01] MEDS: LACTATED RINGERS 1,000 ML IV SCH ×2 (07:39→14:37)
[2018-02-01] MEDS ORDERED: ceFAZolin 1,000 MG VIAL ONE (07:58)
[2018-02-01] MEDS ORDERED: HEPARIN 10,000 UNIT/10 ML VIAL ONE (08:00)
[2018-02-01] MEDS ORDERED: NITROGLYCERIN DRIP 50 MG/250 ML BOTTLE IV ONE (08:00)
[2018-02-01] MEDS ORDERED: PROTAMINE SULFATE 50 MG/5 ML VIAL IV ONE (08:00)
[2018-02-01] MEDS ORDERED: HEPARIN/NACL 0.9% 2 UNITS/ML 500 ML IV ONE (08:00)
[2018-02-01] MEDS ORDERED: PHENYLEPHRINE DRIP 20 MG/250 ML PREMIX IV ONE (08:00)
[2018-02-01] MEDS ORDERED: LIDOCAINE 1% 20 ML VIAL ONE (08:08)
[2018-02-01] MEDS ORDERED: HEPARIN 5,000 UNIT/1 ML VIAL ONE (08:08)
[2018-02-01] MEDS ORDERED: TISSUE ADHESIVE 1 EACH APPLICATOR TOP ONE (08:31)
[2018-02-01] MEDS ORDERED: oxyCODONE/ACETAMINOPHEN 5-325 MG TABLET PO PRN ×2 (11:21)
[2018-02-01] MEDS ORDERED: NALOXONE 0.4 MG/ML VIAL IV PRN (11:21)
[2018-02-01] MEDS ORDERED: ONDANSETRON 4 MG/2 ML VIAL IV PRN (11:21)
[2018-02-01] MEDS ORDERED: HYDROmorphone 2 MG/1 ML VIAL IV PRN ×2 (11:21)
[2018-02-01] MEDS ORDERED: PROMETHAZINE 25 MG/1 ML VIAL IM PRN (11:21)
[2018-02-01] MEDS ORDERED: GLUCAGON 1 MG VIAL IM PRN (11:21)
[2018-02-01] MEDS ORDERED: DEXTROSE 50% 25 GM/50 ML VIAL IV PRN (11:21)
[2018-02-01] MEDS ORDERED: TRIAMCINOLONE 0.1% CREAM 15 GM TUBE TOP PRN (11:24)
[2018-02-01] MEDS ORDERED: INSULIN LISPRO 100 UNIT/ML SUBCUT SCH (11:30)
[2018-02-01] MEDS ORDERED: SEVOFLURANE 1 UNIT/15 MINUTE INH ONE (11:38)
[2018-02-01] MEDS ORDERED: ETOMIDATE 40 MG/20 ML VIAL IV ONE (11:38)
[2018-02-01] MEDS ORDERED: fentaNYL 100 MCG/2 ML VIAL ONE (11:38)
[2018-02-01] MEDS ORDERED: MIDAZOLAM 2 MG/2 ML VIAL ONE (11:38)
[2018-02-01] MEDS ORDERED: ROCURONIUM 100 MG/10 ML VIAL IV ONE (11:38)
[2018-02-01] MEDS ORDERED: SODIUM CHLORIDE 0.9% 1,000 ML IV ONE (11:38)
[2018-02-01] MEDS ORDERED: NITROPRUSSIDE 50 MG/2 ML VIAL ONE (14:30)
[2018-02-01] MEDS: INSULIN REGULAR 100 UNIT/ML SUBCUT SCH ×3 (15:56→21:49)
[2018-02-01] MEDS: MAGNESIUM OXIDE 400 MG TABLET PO SCH ×2 (15:57→21:48)
[2018-02-01] MEDS: hydrALAZINE 25 MG TABLET PO SCH ×2 (15:57→21:49)
[2018-02-01] MEDS: PHENYLEPHRINE DRIP 40 MG/250 ML PREMIX IV SCH (17:45)
[2018-02-01] MEDS: NITROPRUSSIDE 100 MG in DEXTROSE 5% 250 ML IV SCH ×2 (17:45→20:00)
[2018-02-01] MEDS ORDERED: CLOBETASOL PROPIONATE TOP SCH (21:00)
[2018-02-01] MEDS ORDERED: PANTOPRAZOLE 40 MG TABLET PO SCH (21:00)
[2018-02-01] MEDS ORDERED: INSULIN GLARGINE 100 UNIT/ML SUBCUT SCH (21:00)
[2018-02-01] MEDS: GEMFIBROZIL 600 MG TABLET PO SCH (21:48)
[2018-02-02] MEDS: LACTATED RINGERS 1,000 ML IV SCH ×3 (00:25→10:02)
[2018-02-02] MEDS: INSULIN REGULAR 100 UNIT/ML SUBCUT SCH ×2 (08:00→13:05)
[2018-02-02] MEDS ORDERED: DEXTROSE 50% 25 GM/50 ML VIAL IV PRN (08:39)
[2018-02-02] MEDS ORDERED: GLUCAGON 1 MG VIAL IM PRN (08:39)
[2018-02-02] MEDS ORDERED: CETIRIZINE 10 MG TABLET PO SCH (09:00)
[2018-02-02] MEDS ORDERED: DILTIAZEM CD 180 MG CAPSULE PO SCH (09:00)
[2018-02-02] MEDS ORDERED: ASPIRIN EC 81 MG TABLET PO SCH ×2 (09:00)
[2018-02-02] MEDS ORDERED: CLOPIDOGREL 75 MG TABLET PO SCH ×2 (09:00)
[2018-02-02] MEDS ORDERED: metFORMIN 500 MG TABLET PO SCH (09:00)
[2018-02-02] MEDS ORDERED: INSULIN GLARGINE 100 UNIT/ML SUBCUT SCH (09:00)
[2018-02-02] MEDS ORDERED: CLOBETASOL PROPIONATE TOP SCH (09:00)
[2018-02-02] MEDS ORDERED: NEBIVOLOL 10 MG TABLET PO SCH (09:00)
[2018-02-02] MEDS: MAGNESIUM OXIDE 400 MG TABLET PO SCH (10:04)
[2018-02-02] MEDS: GEMFIBROZIL 600 MG TABLET PO SCH (10:05)
[2018-02-02] MEDS: hydrALAZINE 25 MG TABLET PO SCH (10:05)
[2018-02-02 10:06] VITALS: BP 167/67
[2018-02-02] MEDS: PHENYLEPHRINE DRIP 40 MG/250 ML PREMIX IV SCH (11:56)
[2018-02-02] MEDS: NITROPRUSSIDE 100 MG in DEXTROSE 5% 250 ML IV SCH (11:57)
[2018-02-08] MEDS ORDERED: DULAGLUTIDE 1.5 MG SUBCUT SCH (09:00)
== END 2018-02-02 13:45 | disposition home or self-care (01) | DRG 39 ==
LOC: N.OR 06:59 → N.SDSINP 07:00 → N.OR 09:24 → N.SDSINP 11:15 → N.ICU 13:01
PROVIDERS: ADMIT Surgery; ATTEND Surgery

== ENCOUNTER 2018-04-25 20:42 | Inpatient (IN) ==
[2018-04-25] MEDS ORDERED: DILTIAZEM 50 MG/10 ML VIAL IV STA (21:10)
[2018-04-25] MEDS ORDERED: MORPHINE 4 MG/1 ML VIAL IV STA (21:10)
[2018-04-25] MEDS ORDERED: NITROGLYCERIN 2% OINT 1 INCH/GM PACK TOP STA (21:10)
[2018-04-25] MEDS ORDERED: ASPIRIN 325 MG TABLET PO STA (21:10)
[2018-04-25] MEDS ORDERED: ONDANSETRON 4 MG/2 ML VIAL IV STA (21:10)
[2018-04-25] MEDS ORDERED: ALUM/MAG/SIMETH/LIDO VISC 1:1 30 ML BOTTLE PO STA (21:10)
[2018-04-25 21:29] LABS: Basophils # 0.1 10*3/uL (0.0-0.2); Basophils % 1.9 % (0.0-0.8); Eosinophils # 0.3 10*3/uL (0.0-0.87); Eosinophils % 6.1 % (0.00-10.9); Hematocrit 37.5 VOL% (42.0-52.0); Hemoglobin 12.8 GM/DL (14.0-18.0); Immature Granulocytes % 0.8 %; Immature Granulocytes Absolute 0.04 #; Lymphocytes # 1.7 10*3/uL (1.4-4.0); Lymphocytes % 35.3 % (21.2-54.2); Mean Corpuscular HGB Conc 34.1 GM/DL (32-36); Mean Corpuscular Hemoglobin 29 PG (27-34); Mean Corpuscular Volume 84.3 FL (87-102); Monocytes # 0.6 10*3/uL (0.11-0.8); Monocytes % 13.1 % (1.7-12.7); Neutrophils % 42.8 % (38.7-73.9); Platelet Count 263 T/CUMM (130-400); Red Blood Count 4.45 MC/CUMM (3.8-5.5); Red Cell Distribution Width 13.8 % (9.3-17.3); White Blood Count 4.7 T/CUMM (4-12)
[2018-04-25] MEDS ORDERED: DILTIAZEM 25 MG/5 ML VIAL IV ONE (21:41)
[2018-04-25 21:49] LABS: INR 0.9; PT Patient Result 10.2 SECS
[2018-04-25 21:59] LABS: Alanine Aminotransferase 32 U/L (16-61); Albumin 3.7 G/DL (3.4-5.0); Alkaline Phosphatase 61 U/L (45-117); Aspartate Amino Transferase 26 U/L (0-37); Bilirubin,Total < 0.39 MG/DL (0.2-1.0); Blood Urea Nitrogen 22 MG/DL (7-18); Calcium 8.2 MG/DL (8.5-10.1); Glucose 286 MG/DL (74-106); Osmolality,Calculated 285.8 MOS/KG (273-304); Potassium 4.8 MMOL/L (3.5-5.1); Sodium 137 MMOL/L (136-145); Total Protein 7.3 G/DL (6.4-8.3)
[2018-04-25] MEDS ORDERED: INSULIN REGULAR 100 UNIT/ML ONE (22:12)
[2018-04-25] MEDS ORDERED: INSULIN REGULAR 100 UNIT/ML SUBCUT STA (22:15)
[2018-04-25] MEDS ORDERED: MAGNESIUM SULF RIDER 2 GM in PREMIX 1 EACH IV STA (22:16)
[2018-04-25] MEDS ORDERED: ONDANSETRON 4 MG/2 ML VIAL IV PRN (23:22)
[2018-04-25] MEDS ORDERED: MORPHINE 4 MG/1 ML VIAL IV PRN (23:22)
[2018-04-25] MEDS ORDERED: INSULIN REGULAR 100 UNIT/ML SUBCUT ONE (23:22)
[2018-04-26] MEDS ORDERED: ENOXAPARIN 100 MG/ML SYRINGE SUBCUT SCH (03:30)
[2018-04-26 05:21] LABS: Risk Ratio 4.81; VLDL CHOLESTEROL 70.4 MG/DL
[2018-04-26] MEDS: NITROGLYCERIN 2% OINT 1 INCH/GM PACK TOP SCH ×3 (05:21→21:28)
[2018-04-26] MEDS ORDERED: ENOXAPARIN 40 MG/0.4 ML SYRINGE SUBCUT SCH (09:00)
[2018-04-26] MEDS ORDERED: CLOPIDOGREL 75 MG TABLET PO SCH (09:00)
[2018-04-26] MEDS ORDERED: POTASSIUM CHLORIDE RIDER 10 MEQ in PREMIX 1 EACH IV PRN (10:48)
[2018-04-26] MEDS ORDERED: diphenhydrAMINE CAP 25 MG CAPSULE PO ONE (10:48)
[2018-04-26] MEDS ORDERED: MAGNESIUM SULF RIDER 2 GM in PREMIX 1 EACH IV PRN (10:48)
[2018-04-26] MEDS ORDERED: DIAZEPAM 5 MG TABLET PO ONE (10:48)
[2018-04-26] MEDS ORDERED: LIDOCAINE 1% 20 ML VIAL ONE (10:50)
[2018-04-26] MEDS ORDERED: HEPARIN/NACL 0.9% 2 UNITS/ML 1,000 ML IV ONE (10:50)
[2018-04-26] MEDS ORDERED: MIDAZOLAM 2 MG/2 ML VIAL ONE (10:51)
[2018-04-26] MEDS ORDERED: HYDROmorphone 2 MG/1 ML VIAL ONE (10:51)
[2018-04-26] MEDS ORDERED: DEXTROSE 50% 25 GM/50 ML VIAL IV PRN (11:42)
[2018-04-26] MEDS ORDERED: GLUCAGON 1 MG VIAL IM PRN (11:42)
[2018-04-26] MEDS: NEBIVOLOL 10 MG TABLET PO SCH (13:41)
[2018-04-26] MEDS: DILTIAZEM CD 180 MG CAPSULE PO SCH (13:42)
[2018-04-26] MEDS: hydrALAZINE 25 MG TABLET PO SCH ×3 (13:42→21:27)
[2018-04-26] MEDS: MAGNESIUM OXIDE 400 MG TABLET PO SCH ×3 (13:43→21:27)
[2018-04-26] MEDS: GEMFIBROZIL 600 MG TABLET PO SCH ×2 (13:43→21:27)
[2018-04-26] MEDS: CETIRIZINE 10 MG TABLET PO SCH (13:44)
[2018-04-26] MEDS: ASPIRIN EC 81 MG TABLET PO SCH (13:44)
[2018-04-26] MEDS: PANTOPRAZOLE 40 MG TABLET PO SCH (17:10)
[2018-04-26] MEDS: INSULIN REGULAR 100 UNIT/ML SUBCUT SCH (21:26)
[2018-04-26] MEDS: ROSUVASTATIN 20 MG TABLET PO SCH (21:26)
[2018-04-26] MEDS: SODIUM CHLORIDE 0.9% 1,000 ML IV SCH (21:28)
[2018-04-27 04:51] LABS: Calcium 7.8 MG/DL (8.5-10.1); Osmolality,Calculated 282.7 MOS/KG (273-304); Potassium 4.5 MMOL/L (3.5-5.1)
[2018-04-27] MEDS: SODIUM CHLORIDE 0.9% 1,000 ML IV SCH ×2 (05:45→05:52)
[2018-04-27] MEDS: NITROGLYCERIN 2% OINT 1 INCH/GM PACK TOP SCH ×4 (05:54→17:17)
[2018-04-27] MEDS: NEBIVOLOL 10 MG TABLET PO SCH (08:32)
[2018-04-27] MEDS: DILTIAZEM CD 180 MG CAPSULE PO SCH (08:32)
[2018-04-27] MEDS: MAGNESIUM OXIDE 400 MG TABLET PO SCH ×3 (08:33→20:48)
[2018-04-27] MEDS: INSULIN REGULAR 100 UNIT/ML SUBCUT SCH ×6 (08:33→20:48)
[2018-04-27] MEDS: CETIRIZINE 10 MG TABLET PO SCH (08:33)
[2018-04-27] MEDS: ASPIRIN EC 81 MG TABLET PO SCH (08:33)
[2018-04-27] MEDS: GEMFIBROZIL 600 MG TABLET PO SCH ×2 (08:33→20:48)
[2018-04-27] MEDS: hydrALAZINE 25 MG TABLET PO SCH ×3 (08:33→20:48)
[2018-04-27] MEDS ORDERED: INSULIN GLARGINE 100 UNIT/ML SUBCUT SCH ×2 (10:30→21:00)
[2018-04-27] MEDS ORDERED: SODIUM CHLORIDE 0.9% 1,000 ML IV SCH (10:30)
[2018-04-27] MEDS: PANTOPRAZOLE 40 MG TABLET PO SCH (17:16)
[2018-04-27] MEDS ORDERED: ACETAMINOPHEN 325 MG/10.15 ML UDCUP PO PRN (20:27)
[2018-04-27] MEDS: ROSUVASTATIN 20 MG TABLET PO SCH (20:48)
[2018-04-27] MEDS ORDERED: ACETAMINOPHEN 325 MG TABLET PO PRN (21:00)
[2018-04-28] MEDS: NITROGLYCERIN 2% OINT 1 INCH/GM PACK TOP SCH ×4 (01:43→18:46)
[2018-04-28 05:27] LABS: Basophils % 0.7 % (0.0-0.8); Eosinophils # 0.3 10*3/uL (0.0-0.87); Eosinophils % 4.9 % (0.00-10.9); Hematocrit 35.1 VOL% (42.0-52.0); Hemoglobin 11.6 GM/DL (14.0-18.0); Immature Granulocytes % 0.7 %; Immature Granulocytes Absolute 0.04 #; Lymphocytes # 1.2 10*3/uL (1.4-4.0); Lymphocytes % 22.3 % (21.2-54.2); Mean Corpuscular Hemoglobin 27 PG (27-34); Mean Corpuscular Volume 82.6 FL (87-102); Mean Platelet Volume 11.1 FL (9.6-12.0); Monocytes # 0.8 10*3/uL (0.11-0.8); Neutrophils # 3.1 10*3/uL (1.4-7.4); Neutrophils % 57.4 % (38.7-73.9); Platelet Count 223 T/CUMM (130-400); Red Blood Count 4.25 MC/CUMM (3.8-5.5); Red Cell Distribution Width 13.8 % (9.3-17.3); White Blood Count 5.3 T/CUMM (4-12)
[2018-04-28 06:03] LABS: Calcium 8.5 MG/DL (8.5-10.1); Osmolality,Calculated 281.4 MOS/KG (273-304); Potassium 3.8 MMOL/L (3.5-5.1)
[2018-04-28] MEDS ORDERED: MAGNESIUM SULF RIDER 4 GM in PREMIX 1 EACH IV PRN (07:41)
[2018-04-28] MEDS ORDERED: MAGNESIUM SULF RIDER 2 GM in PREMIX 1 EACH IV PRN (07:41)
[2018-04-28] MEDS: INSULIN REGULAR 100 UNIT/ML SUBCUT SCH ×5 (08:27→21:01)
[2018-04-28] MEDS ORDERED: GLUCAGON 1 MG VIAL IM PRN (08:46)
[2018-04-28] MEDS ORDERED: DEXTROSE 50% 25 GM/50 ML VIAL IV PRN (08:46)
[2018-04-28] MEDS ORDERED: CHLORHEXIDINE 4% SOLN 118 ML BOTTLE TOP SCH (09:00)
[2018-04-28] MEDS ORDERED: INSULIN GLARGINE 100 UNIT/ML SUBCUT SCH ×2 (09:00→21:00)
[2018-04-28] MEDS ORDERED: CHLORHEXIDINE 0.12% ORAL RINSE 60 ML BOTTLE SWISH/SPIT SCH (09:00)
[2018-04-28] MEDS: DILTIAZEM CD 180 MG CAPSULE PO SCH (09:13)
[2018-04-28] MEDS: NEBIVOLOL 10 MG TABLET PO SCH (09:13)
[2018-04-28] MEDS: ASPIRIN EC 81 MG TABLET PO SCH (09:14)
[2018-04-28] MEDS: GEMFIBROZIL 600 MG TABLET PO SCH ×2 (09:14→21:04)
[2018-04-28] MEDS: MAGNESIUM OXIDE 400 MG TABLET PO SCH ×3 (09:14→21:05)
[2018-04-28] MEDS: CETIRIZINE 10 MG TABLET PO SCH (09:14)
[2018-04-28] MEDS: hydrALAZINE 25 MG TABLET PO SCH (09:14)
[2018-04-28] MEDS: SODIUM CHLORIDE 0.9% 1,000 ML IV SCH (10:42)
[2018-04-28] MEDS: PANTOPRAZOLE 40 MG TABLET PO SCH (16:04)
[2018-04-28] MEDS ORDERED: INSULIN REGULAR 100 UNIT/ML SUBCUT ONE (17:32)
[2018-04-28] MEDS: ROSUVASTATIN 20 MG TABLET PO SCH (21:04)
[2018-04-29] MEDS: NITROGLYCERIN 2% OINT 1 INCH/GM PACK TOP SCH ×4 (02:48→20:06)
[2018-04-29] MEDS: NEBIVOLOL 10 MG TABLET PO SCH (08:33)
[2018-04-29] MEDS: GEMFIBROZIL 600 MG TABLET PO SCH ×2 (08:34→20:43)
[2018-04-29] MEDS: MAGNESIUM OXIDE 400 MG TABLET PO SCH ×3 (08:34→20:43)
[2018-04-29] MEDS: DILTIAZEM CD 180 MG CAPSULE PO SCH (08:34)
[2018-04-29] MEDS: ASPIRIN EC 81 MG TABLET PO SCH (08:34)
[2018-04-29] MEDS: CETIRIZINE 10 MG TABLET PO SCH (08:34)
[2018-04-29] MEDS: INSULIN REGULAR 100 UNIT/ML SUBCUT SCH ×4 (08:35→20:43)
[2018-04-29] MEDS: INSULIN NPH 100 UNIT/ML SUBCUT SCH ×3 (08:35→16:23)
[2018-04-29] MEDS: CHLORHEXIDINE 0.12% ORAL RINSE 60 ML BOTTLE SWISH/SPIT SCH ×2 (08:41→20:45)
[2018-04-29] MEDS ORDERED: CEFUROXIME INJ 1,500 MG in SYRINGE 1 EACH IV ONE (08:46)
[2018-04-29] MEDS: SODIUM CHLORIDE 0.9% 1,000 ML IV SCH (11:43)
[2018-04-29] MEDS: CHLORHEXIDINE 4% SOLN 118 ML BOTTLE TOP SCH ×2 (14:51→20:45)
[2018-04-29] MEDS: PANTOPRAZOLE 40 MG TABLET PO SCH (16:22)
[2018-04-29] MEDS: ROSUVASTATIN 20 MG TABLET PO SCH (20:43)
[2018-04-29] MEDS ORDERED: INSULIN GLARGINE 100 UNIT/ML SUBCUT SCH (21:00)
[2018-04-30] MEDS: NITROGLYCERIN 2% OINT 1 INCH/GM PACK TOP SCH ×3 (00:57→12:00)
[2018-04-30 04:45] LABS: Basophils # 0.1 10*3/uL (0.0-0.2); Basophils % 1.6 % (0.0-0.8); Eosinophils # 0.5 10*3/uL (0.0-0.87); Eosinophils % 10.5 % (0.00-10.9); Hematocrit 34.7 VOL% (42.0-52.0); Hemoglobin 11.3 GM/DL (14.0-18.0); Immature Granulocytes % 0.6 %; Immature Granulocytes Absolute 0.03 #; Lymphocytes # 1.6 10*3/uL (1.4-4.0); Lymphocytes % 31.8 % (21.2-54.2); Mean Corpuscular HGB Conc 32.6 GM/DL (32-36); Mean Corpuscular Hemoglobin 27 PG (27-34); Mean Corpuscular Volume 83.4 FL (87-102); Mean Platelet Volume 10.8 FL (9.6-12.0); Monocytes # 0.9 10*3/uL (0.11-0.8); Monocytes % 17.7 % (1.7-12.7); Neutrophils # 1.9 10*3/uL (1.4-7.4); Neutrophils % 37.8 % (38.7-73.9); Platelet Count 242 T/CUMM (130-400); Red Blood Count 4.16 MC/CUMM (3.8-5.5); Red Cell Distribution Width 14.2 % (9.3-17.3)
[2018-04-30] MEDS ORDERED: PAPAVERINE 60 MG/2 ML VIAL ONE (05:04)
[2018-04-30] MEDS ORDERED: VANCOMYCIN 1,000 MG VIAL ONE (05:04)
[2018-04-30 05:20] LABS: Atypical Lymphocytes Few; Band Neutrophils 1 % (0-10); Eosinophils 10 % (0-10); Hypochromasia 1+; Lymphocytes 22 % (20-55); Microcytosis 1+; Polychromasia Slight; Segmented Neutrophils 47 % (50-85); Total Cells Counted 100
[2018-04-30 05:21] LABS: Platelet Estimate Normal
[2018-04-30 05:25] LABS: Albumin 3.1 G/DL (3.4-5.0); Bilirubin,Total 0.6 MG/DL (0.2-1.0); Calcium 8.9 MG/DL (8.5-10.1); Osmolality,Calculated 285.4 MOS/KG (273-304)
[2018-04-30] MEDS: CHLORHEXIDINE 4% SOLN 118 ML BOTTLE TOP SCH ×2 (05:41→09:02)
[2018-04-30] MEDS: NEBIVOLOL 10 MG TABLET PO SCH ×2 (05:41→09:01)
[2018-04-30] MEDS: CHLORHEXIDINE 0.12% ORAL RINSE 60 ML BOTTLE SWISH/SPIT SCH ×3 (05:41→20:43)
[2018-04-30] MEDS ORDERED: DIAZEPAM 5 MG TABLET PO ONE (06:30)
[2018-04-30] MEDS ORDERED: SODIUM CHLORIDE 0.9% 1,000 ML IV SCH (06:30)
[2018-04-30] MEDS ORDERED: CEFUROXIME INJ 1,500 MG in SYRINGE 1 EACH IV ONE (06:30)
[2018-04-30] MEDS ORDERED: NITROPRUSSIDE 50 MG/2 ML VIAL ONE (07:22)
[2018-04-30] MEDS ORDERED: PHENYLEPHRINE DRIP 40 MG/250 ML PREMIX IV ONE (07:22)
[2018-04-30] MEDS ORDERED: POTASSIUM CHLORIDE RIDER 100 ML IV ONE (07:23)
[2018-04-30] MEDS ORDERED: CALCIUM CHLORIDE 1,000 MG/10 ML SYRINGE IV ONE (07:23)
[2018-04-30] MEDS: INSULIN REGULAR 100 UNIT/ML SUBCUT SCH ×2 (07:30→11:30)
[2018-04-30] MEDS: INSULIN NPH 100 UNIT/ML SUBCUT SCH ×2 (07:30→11:30)
[2018-04-30 07:43] LABS: ABG HCO3 22.8 MMOL/L (20-26); ABG Oxygen Saturation 99.4 % (95-100); ABG PH 7.298 (7.35-7.45); ABG TCO2 22.8 MMOL/L (23-27); Glucose Heart Surgery 172 MG/DL (74-106); Hematocrit Heart Surgery 33.3 PERCENT (42-52); Hemoglobin Heart Surgery 10.8 G/DL (14.0-18.0); Ionized Calcium Arterial 1.21 MMOL/L (1.21-1.46); PH Patient Temp Arterial 7.298; Patient Temperature 37 CELCIUS; Potassium Heart/CVR 3.8 MMOL/L (3.5-5.1); Sodium Heart/CVR 138 MMOL/L (135-145)
[2018-04-30 07:49] LABS: Apearance,Urine CLEAR (Clear); Bilirubin,Urine Negative (Negative); Blood, Urine Negative (Negative); Glucose,Urine (UA) 50 mg/dL (Negative); Ketones,Urine Negative (Negative); Mucus,Urine Occasional /LPF (Occasional); Nitrite,Urine Negative (Negative); Protein,Urine Negative; RBC,Urine <1 /HPF (0-4); Squamous Epithelial Cell,Urine Occasional /HPF (0-10); Urine Color Yellow (Yellow); Urine Specific Gravity 1.011 (1.001-1.035); Urine Urobilinogen < 2.0 EU/DL (0.2-1.0); WBC,Urine 1 /HPF (0-6)
[2018-04-30] MEDS: ASPIRIN EC 81 MG TABLET PO SCH (09:01)
[2018-04-30] MEDS: DILTIAZEM CD 180 MG CAPSULE PO SCH (09:01)
[2018-04-30] MEDS: GEMFIBROZIL 600 MG TABLET PO SCH (09:03)
[2018-04-30] MEDS: MAGNESIUM OXIDE 400 MG TABLET PO SCH (09:03)
[2018-04-30] MEDS: CETIRIZINE 10 MG TABLET PO SCH (09:03)
[2018-04-30 09:08] LABS: Hematocrit Heart Surgery 23.3 PERCENT (42-52); Hemoglobin Heart Surgery 7.5 G/DL (14.0-18.0); PCO2 Patient Temp Venous 35.4 MM HG; PH Patient Temp Venous 7.437; PO2 Patient Temp Venous 36.7 MM HG; VBG Base Excess 0.1 MEQ/L (0-4); VBG HCO3 24.3 MEQ/L (24-28); VBG Oxygen Saturation 79.8 %; VBG PH 7.393; VBG PO2 45.1 MMHG (17-40)
[2018-04-30 09:40] LABS: Hematocrit Heart Surgery 24.2 PERCENT (42-52); Hemoglobin Heart Surgery 7.8 G/DL (14.0-18.0); PCO2 Patient Temp Venous 34.3 MM HG; PH Patient Temp Venous 7.465; PO2 Patient Temp Venous 36.9 MM HG; Potassium Heart/CVR 4.7 MMOL/L (3.5-5.1); VBG Base Excess 1.2 MEQ/L (0-4); VBG HCO3 25.2 MEQ/L (24-28); VBG PH 7.45; VBG PO2 39.6 MMHG (17-40)
[2018-04-30 10:13] LABS: Hematocrit Heart Surgery 22.8 PERCENT (42-52); Hemoglobin Heart Surgery 7.3 G/DL (14.0-18.0); PCO2 Patient Temp Venous 36.9 MM HG; PH Patient Temp Venous 7.449; PO2 Patient Temp Venous 39.5 MM HG; Potassium Heart/CVR 4.6 MMOL/L (3.5-5.1); VBG Base Excess 1.6 MEQ/L (0-4); VBG HCO3 25.6 MEQ/L (24-28); VBG Oxygen Saturation 75.2 %; VBG PCO2 36.9 MMHG (41-51); VBG PH 7.449; VBG PO2 39.5 MMHG (17-40)
[2018-04-30 11:05] LABS: ABG Base Excess 1.1 MMOL/L (-2.5-2.5); ABG HCO3 25.4 MMOL/L (20-26); ABG Oxygen Saturation 99.8 % (95-100); ABG PCO2 37.3 MM HG (35-48); ABG PH 7.437 (7.35-7.45); ABG TCO2 23.5 MMOL/L (23-27); Glucose Heart Surgery 334 MG/DL (74-106); Hematocrit Heart Surgery 24.3 PERCENT (42-52); Hemoglobin Heart Surgery 7.8 G/DL (14.0-18.0); Ionized Calcium Arterial 1.27 MMOL/L (1.21-1.46); PCO2 Patient Temp Arterial 37.3 MMHG; PH Patient Temp Arterial 7.437; Patient Temperature 37 CELCIUS; Potassium Heart/CVR 3.6 MMOL/L (3.5-5.1); Sodium Heart/CVR 133 MMOL/L (135-145)
[2018-04-30] MEDS ORDERED: DEXTROSE 5% KCL 20 MEQ 40 MEQ/2,000 ML BAG IV ONE (11:08)
[2018-04-30] MEDS ORDERED: ALBUMIN 25% 25 GM/100 ML VIAL IV ONE (11:09)
[2018-04-30] MEDS ORDERED: methylPREDNISolone SOD SUC 1,000 MG/8 ML VIAL ONE (11:09)
[2018-04-30] MEDS ORDERED: MANNITOL 12.5 GM/50 ML VIAL IV ONE (11:09)
[2018-04-30] MEDS ORDERED: PROTAMINE SULFATE 250 MG/25 ML VIAL IV ONE (11:09)
[2018-04-30] MEDS ORDERED: SODIUM BICARBONATE 50 MEQ/50 ML SYRINGE IV ONE (11:09)
[2018-04-30] MEDS ORDERED: FUROSEMIDE 20 MG/2 ML VIAL ONE (11:09)
[2018-04-30] MEDS ORDERED: MAGNESIUM SULFATE 10 GM/20 ML VIAL IV ONE (11:09)
[2018-04-30] MEDS ORDERED: HEPARIN 10,000 UNIT/10 ML VIAL ONE (11:09)
[2018-04-30] MEDS ORDERED: PHENYLEPHRINE 1 MG/10 ML SYRINGE IV ONE (11:10)
[2018-04-30] MEDS ORDERED: THROMBIN TOPICAL (RECOMBINANT) 5,000 UNIT VIAL TOP ONE (11:22)
[2018-04-30] MEDS ORDERED: AMIODARONE 450 MG/9 ML VIAL IV ONE (12:02)
[2018-04-30] MEDS ORDERED: PROTAMINE SULFATE 50 MG/5 ML VIAL IV ONE ×2 (12:30→12:43)
[2018-04-30] MEDS ORDERED: AMIODARONE INJ 450 MG in DEXTROSE 5% 241 ML IV SCH ×2 (12:30→18:35)
[2018-04-30] MEDS ORDERED: CALCIUM CHLORIDE 1,000 MG/10 ML VIAL IV ONE (12:34)
[2018-04-30] MEDS ORDERED: SUFentanil 250 MCG/5 ML AMP ONE (12:34)
[2018-04-30] MEDS ORDERED: HEPARIN/NACL 0.9% 2 UNITS/ML 500 ML IV ONE (12:34)
[2018-04-30] MEDS ORDERED: NITROGLYCERIN DRIP 50 MG/250 ML BOTTLE IV ONE (12:35)
[2018-04-30] MEDS ORDERED: VECURONIUM 10 MG VIAL IV ONE (12:35)
[2018-04-30] MEDS ORDERED: AMIODARONE 150 MG/3 ML VIAL ONE (12:35)
[2018-04-30] MEDS ORDERED: PHENYLEPHRINE 10 MG/1 ML VIAL IV ONE (12:35)
[2018-04-30] MEDS ORDERED: MIDAZOLAM 10 MG/2 ML VIAL ONE ×2 (12:35→13:24)
[2018-04-30] MEDS ORDERED: SODIUM CHLORIDE 0.9% 1,000 ML IV ONE (12:36)
[2018-04-30] MEDS ORDERED: SODIUM CHLORIDE 0.9% 100 ML IV ONE (12:36)
[2018-04-30] MEDS ORDERED: AMINOCAPROIC ACID 5,000 MG/20 ML VIAL IV ONE (12:36)
[2018-04-30] MEDS ORDERED: SODIUM CHLORIDE 0.9% 250 ML IV ONE (12:36)
[2018-04-30] MEDS ORDERED: LACTATED RINGERS 1,000 ML IV ONE (12:36)
[2018-04-30] MEDS ORDERED: CALCIUM CHLORIDE 1,000 MG/10 ML SYRINGE IV PRN (12:56)
[2018-04-30] MEDS ORDERED: MAGNESIUM SULF RIDER 4 GM in PREMIX 1 EACH IV PRN (12:56)
[2018-04-30] MEDS ORDERED: ONDANSETRON 4 MG/2 ML VIAL IV PRN (12:56)
[2018-04-30] MEDS ORDERED: MIDAZOLAM 2 MG/2 ML VIAL IV PRN (12:56)
[2018-04-30] MEDS ORDERED: MORPHINE 10 MG/1 ML VIAL IV PRN (12:56)
[2018-04-30] MEDS ORDERED: MIDAZOLAM 10 MG/2 ML VIAL IV PRN (12:56)
[2018-04-30] MEDS ORDERED: NITROPRUSSIDE 100 MG in DEXTROSE 5% 250 ML IV PRN (12:56)
[2018-04-30] MEDS ORDERED: PHENYLEPHRINE DRIP 40 MG/250 ML PREMIX IV PRN (12:56)
[2018-04-30] MEDS ORDERED: ACETAMINOPHEN 650 MG SUPP RECTAL PRN (12:56)
[2018-04-30] MEDS ORDERED: MAGNESIUM SULF RIDER 2 GM in PREMIX 1 EACH IV PRN (12:56)
[2018-04-30] MEDS ORDERED: LACTATED RINGERS 250 ML IV PRN (12:56)
[2018-04-30] MEDS ORDERED: MORPHINE 4 MG/1 ML VIAL IV PRN (12:56)
[2018-04-30] MEDS ORDERED: INSULIN REGULAR 100 UNIT/ML IV PRN (12:56)
[2018-04-30] MEDS ORDERED: VECURONIUM 10 MG VIAL IV PRN ×2 (12:56)
[2018-04-30] MEDS ORDERED: INSULIN REGULAR 100 UNIT/ML IV ONE (12:56)
[2018-04-30] MEDS ORDERED: SODIUM CHLORIDE 0.45% 1,000 ML IV SCH ×2 (12:56)
[2018-04-30] MEDS ORDERED: DEXTROSE 50% 25 GM/50 ML VIAL IV PRN ×2 (12:56)
[2018-04-30] MEDS ORDERED: POTASSIUM CHLORIDE RIDER 10 MEQ in PREMIX 1 EACH IV PRN (12:56)
[2018-04-30 13:06] LABS: ABG Base Excess 0.3 MMOL/L (-2.5-2.5); ABG HCO3 24.3 MMOL/L (20-26); ABG Oxygen Saturation 98.3 % (95-100); ABG PCO2 36.3 MM HG (35-48); ABG PH 7.443 (7.35-7.45); ABG PO2 244.1 MM HG (80-95); ABG TCO2 25.4 MMOL/L (23-27); Glucose Heart Surgery 297 MG/DL (74-106); Hemoglobin Heart Surgery 8.7 G/DL (14.0-18.0); Potassium Heart/CVR 3.5 MMOL/L (3.5-5.1)
[2018-04-30 13:08] LABS: Basophils # 0.1 10*3/uL (0.0-0.2); Basophils % 0.9 % (0.0-0.8); Eosinophils # 0.1 10*3/uL (0.0-0.87); Eosinophils % 2.2 % (0.00-10.9); Hematocrit 24.1 VOL% (42.0-52.0); Hemoglobin 8.1 GM/DL (14.0-18.0); Immature Granulocytes % 0.5 %; Immature Granulocytes Absolute 0.03 #; Lymphocytes # 1.2 10*3/uL (1.4-4.0); Lymphocytes % 20.8 % (21.2-54.2); Mean Corpuscular HGB Conc 33.6 GM/DL (32-36); Mean Corpuscular Hemoglobin 28 PG (27-34); Mean Corpuscular Volume 83.4 FL (87-102); Mean Platelet Volume 10.5 FL (9.6-12.0); Monocytes # 0.6 10*3/uL (0.11-0.8); Monocytes % 9.4 % (1.7-12.7); Neutrophils # 3.9 10*3/uL (1.4-7.4); Neutrophils % 66.2 % (38.7-73.9); Platelet Count 249 T/CUMM (130-400); Red Blood Count 2.89 MC/CUMM (3.8-5.5); Red Cell Distribution Width 14.1 % (9.3-17.3); White Blood Count 5.9 T/CUMM (4-12)
[2018-04-30] MEDS: INSULIN REGULAR DRIP 100 ML IV SCH ×2 (13:20→18:24)
[2018-04-30 13:26] LABS: INR 1.4; PT Patient Result 14.7 SECS; Partial Thromboplastin Time 26.7 SECS (0-40)
[2018-04-30] MEDS ORDERED: DEXTROSE 50% 25 GM/50 ML SYRINGE IV PRN ×2 (13:30)
[2018-04-30] MEDS ORDERED: SODIUM CHLORIDE 0.9% 1,000 ML IV PRN (13:39)
[2018-04-30 13:55] LABS: CKMB % 3.9 %
[2018-04-30 13:58] LABS: Albumin 2.9 G/DL (3.4-5.0); Bilirubin,Total 0.6 MG/DL (0.2-1.0); Calcium 9.9 MG/DL (8.5-10.1); Osmolality,Calculated 286.7 MOS/KG (273-304); Potassium 3.6 MMOL/L (3.5-5.1); Total Protein 5.7 G/DL (6.4-8.3)
[2018-04-30 15:17] LABS: ABG Base Excess -2.2 MMOL/L (-2.5-2.5); ABG HCO3 22.6 MMOL/L (20-26); ABG Oxygen Saturation 99.3 % (95-100); ABG PCO2 39.1 MM HG (35-48); ABG PH 7.373 (7.35-7.45); ABG TCO2 20.8 MMOL/L (23-27); Glucose Heart Surgery 293 MG/DL (74-106); Hematocrit Heart Surgery 31.2 PERCENT (42-52); Hemoglobin Heart Surgery 10.1 G/DL (14.0-18.0); Potassium Heart/CVR 3.7 MMOL/L (3.5-5.1)
[2018-04-30 16:52] LABS: ABG Base Excess -1.4 MMOL/L (-2.5-2.5); ABG HCO3 23.2 MMOL/L (20-26); ABG PCO2 39.7 MM HG (35-48); ABG TCO2 20.8 MMOL/L (23-27); Glucose Heart Surgery 255 MG/DL (74-106); Hemoglobin Heart Surgery 12.3 G/DL (14.0-18.0); Potassium Heart/CVR 3.6 MMOL/L (3.5-5.1)
[2018-04-30] MEDS: POTASSIUM CHLORIDE RIDER 20 MEQ in PREMIX 1 EACH IV PRN ×2 (17:08→20:02)
[2018-04-30] MEDS ORDERED: FUROSEMIDE 40 MG/4 ML VIAL IV ONE (18:46)
[2018-04-30 18:51] LABS: ABG Base Excess -2.3 MMOL/L (-2.5-2.5); ABG Oxygen Saturation 97.5 % (95-100); ABG PCO2 46.5 MM HG (35-48); ABG PO2 116.4 MM HG (80-95); ABG TCO2 25.4 MMOL/L (23-27); Glucose Heart Surgery 195 MG/DL (74-106); Hemoglobin Heart Surgery 15.5 G/DL (14.0-18.0); Potassium Heart/CVR 4.1 MMOL/L (3.5-5.1)
[2018-04-30] MEDS: ALBUMIN 5% 12.5 GM in PREMIX 1 EACH IV PRN ×2 (18:55→19:48)
[2018-04-30] MEDS ORDERED: FUROSEMIDE 40 MG/4 ML VIAL IV PRN (19:04)
[2018-04-30] MEDS: CEFUROXIME INJ 1,500 MG in SYRINGE 1 EACH IV SCH (20:20)
[2018-04-30] MEDS ORDERED: DILTIAZEM 50 MG/10 ML VIAL IV ONE (21:10)
[2018-04-30] MEDS ORDERED: dilTIAZem Drip 125 MG/125 ML PREMIX IV SCH (21:30)
[2018-04-30 22:47] LABS: CKMB % 3.3 %
[2018-04-30 22:50] LABS: Troponin I 4.09 NG/ML (0.00-0.045)
[2018-04-30] MEDS: ALBUTEROL/IPRATROPIUM 3 ML NEB RESP TX SCH (23:05)
[2018-05-01] MEDS: INSULIN REGULAR DRIP 100 ML IV SCH (00:10)
[2018-05-01] MEDS: ALBUMIN 5% 12.5 GM in PREMIX 1 EACH IV PRN (00:16)
[2018-05-01 02:30] LABS: ABG HCO3 23.6 MMOL/L (20-26); ABG Oxygen Saturation 97.6 % (95-100); ABG PCO2 36.8 MM HG (35-48); ABG PO2 96.6 MM HG (80-95); ABG TCO2 21.3 MMOL/L (23-27); Glucose Heart Surgery 99 MG/DL (74-106); Hematocrit Heart Surgery 30.1 PERCENT (42-52); Hemoglobin Heart Surgery 9.7 G/DL (14.0-18.0); Potassium Heart/CVR 3.4 MMOL/L (3.5-5.1)
[2018-05-01] MEDS: POTASSIUM CHLORIDE RIDER 20 MEQ in PREMIX 1 EACH IV PRN ×2 (02:33→03:20)
[2018-05-01] MEDS: ALBUTEROL/IPRATROPIUM 3 ML NEB RESP TX SCH ×3 (03:33→22:40)
[2018-05-01 03:37] LABS: ABG HCO3 23.6 MMOL/L (20-26); ABG Oxygen Saturation 97.2 % (95-100); ABG PCO2 39.5 MM HG (35-48); ABG PH 7.388 (7.35-7.45); ABG PO2 95.1 MM HG (80-95); Glucose Heart Surgery 109 MG/DL (74-106); Hematocrit Heart Surgery 27.1 PERCENT (42-52); Hemoglobin Heart Surgery 8.7 G/DL (14.0-18.0); Potassium Heart/CVR 4.4 MMOL/L (3.5-5.1)
[2018-05-01 03:59] LABS: Basophils % 0.1 % (0.0-0.8); Hemoglobin 8.4 GM/DL (14.0-18.0); Immature Granulocytes % 0.4 %; Immature Granulocytes Absolute 0.03 #; Lymphocytes # 0.8 10*3/uL (1.4-4.0); Lymphocytes % 9.5 % (21.2-54.2); Mean Corpuscular HGB Conc 33.6 GM/DL (32-36); Mean Corpuscular Hemoglobin 29 PG (27-34); Mean Corpuscular Volume 85.3 FL (87-102); Mean Platelet Volume 10.8 FL (9.6-12.0); Monocytes # 0.6 10*3/uL (0.11-0.8); Neutrophils # 6.5 10*3/uL (1.4-7.4); Platelet Count 207 T/CUMM (130-400); Red Blood Count 2.93 MC/CUMM (3.8-5.5); Red Cell Distribution Width 14.4 % (9.3-17.3)
[2018-05-01 04:10] LABS: Albumin 3.3 G/DL (3.4-5.0); Bilirubin,Direct 0.11 MG/DL (0.0-0.20); Bilirubin,Total 0.5 MG/DL (0.2-1.0); Calcium 8.9 MG/DL (8.5-10.1); Potassium 4.5 MMOL/L (3.5-5.1); Total Protein 6.3 G/DL (6.4-8.3)
[2018-05-01 04:25] LABS: CKMB % 4.2 %
[2018-05-01 04:27] LABS: Troponin I 5.4 NG/ML (0.00-0.045)
[2018-05-01 04:44] LABS: Troponin I 2.85 NG/ML (0.00-0.045)
[2018-05-01] MEDS: CEFUROXIME INJ 1,500 MG in SYRINGE 1 EACH IV SCH (08:01)
[2018-05-01] MEDS ORDERED: TRIAMCINOLONE 0.1% CREAM 15 GM TUBE TOP PRN (08:27)
[2018-05-01] MEDS ORDERED: GLUCAGON 1 MG VIAL IM PRN ×2 (09:21)
[2018-05-01] MEDS ORDERED: ZALEPLON 5 MG CAPSULE PO PRN (09:21)
[2018-05-01] MEDS ORDERED: ALUMINUM/MAGNES/SIMETH MAX STR 30 ML UDCUP PO PRN (09:21)
[2018-05-01] MEDS ORDERED: DEXTROSE 50% 25 GM/50 ML VIAL IV PRN ×2 (09:21)
[2018-05-01] MEDS ORDERED: DILTIAZEM CD 180 MG CAPSULE PO SCH (09:21)
[2018-05-01] MEDS ORDERED: SODIUM CHLOR 0.45% KCL 20 MEQ 20 MEQ/1,000 ML BAG IV SCH (09:21)
[2018-05-01] MEDS ORDERED: MAGNESIUM SULF RIDER 2 GM in PREMIX 1 EACH IV PRN (09:21)
[2018-05-01] MEDS ORDERED: ACETAMINOPHEN 325 MG TABLET PO PRN (09:21)
[2018-05-01] MEDS ORDERED: MORPHINE 4 MG/1 ML VIAL IV PRN (09:21)
[2018-05-01] MEDS ORDERED: MAGNESIUM HYDROXIDE SUSP 30 ML UDCUP PO PRN (09:21)
[2018-05-01] MEDS ORDERED: MAGNESIUM SULF RIDER 4 GM in PREMIX 1 EACH IV PRN (09:21)
[2018-05-01] MEDS ORDERED: POTASSIUM CHLORIDE 20 MEQ TABLET PO PRN (09:21)
[2018-05-01] MEDS ORDERED: ONDANSETRON 4 MG/2 ML VIAL IV PRN (09:21)
[2018-05-01] MEDS ORDERED: CARVEDILOL 3.125 MG TABLET PO SCH (09:30)
[2018-05-01] MEDS: FERROUS SULFATE 325 MG TABLET PO SCH (09:59)
[2018-05-01] MEDS: CHLORHEXIDINE 0.12% ORAL RINSE 60 ML BOTTLE SWISH/SPIT SCH ×3 (09:59→20:21)
[2018-05-01] MEDS: AMIODARONE 200 MG TABLET PO SCH ×2 (10:00→20:15)
[2018-05-01] MEDS: PANTOPRAZOLE 40 MG TABLET PO SCH (10:00)
[2018-05-01] MEDS: DOCUSATE SODIUM 100 MG CAPSULE PO SCH (10:00)
[2018-05-01] MEDS: ASPIRIN EC 325 MG TABLET PO SCH (10:01)
[2018-05-01] MEDS: INSULIN REGULAR 100 UNIT/ML SUBCUT SCH ×3 (11:31→23:29)
[2018-05-01] MEDS ORDERED: SODIUM CHLORIDE 0.9% 1,000 ML IV PRN (12:13)
[2018-05-01] MEDS: NF- (Dulaglutide [Trulicity] 1.5 MG) SUBCUT SCH (12:53)
[2018-05-01] MEDS: oxyCODONE/ACETAMINOPHEN 5-325 MG TABLET PO PRN ×2 (15:08→20:15)
[2018-05-01] MEDS ORDERED: INSULIN GLARGINE 100 UNIT/ML SUBCUT SCH ×2 (16:22→21:00)
[2018-05-01] MEDS: INSULIN LISPRO 100 UNIT/ML SUBCUT SCH (17:20)
[2018-05-01] MEDS ORDERED: INSULIN REGULAR 100 UNIT/ML SUBCUT SCH (18:00)
[2018-05-01 19:10] LABS: Hemoglobin 10.4 GM/DL (14.0-18.0)
[2018-05-01] MEDS: ROSUVASTATIN 20 MG TABLET PO SCH (20:15)
[2018-05-01] MEDS ORDERED: CEFUROXIME INJ 1,500 MG in SYRINGE 1 EACH IV ONE (21:00)
[2018-05-02] MEDS: ALBUTEROL/IPRATROPIUM 3 ML NEB RESP TX SCH ×6 (02:35→23:37)
[2018-05-02 03:31] LABS: Basophils % 0.1 % (0.0-0.8); Hematocrit 30.8 VOL% (42.0-52.0); Hemoglobin 10.2 GM/DL (14.0-18.0); Immature Granulocytes % 0.7 %; Immature Granulocytes Absolute 0.07 #; Lymphocytes % 10.4 % (21.2-54.2); Mean Corpuscular HGB Conc 33.1 GM/DL (32-36); Mean Corpuscular Hemoglobin 29 PG (27-34); Mean Corpuscular Volume 86.5 FL (87-102); Mean Platelet Volume 11.1 FL (9.6-12.0); Monocytes # 1.1 10*3/uL (0.11-0.8); Monocytes % 11.7 % (1.7-12.7); NRBC # 0.04 10*3/uL; Neutrophils # 7.3 10*3/uL (1.4-7.4); Neutrophils % 77.1 % (38.7-73.9); Platelet Count 171 T/CUMM (130-400); Red Blood Count 3.56 MC/CUMM (3.8-5.5); Red Cell Distribution Width 14.7 % (9.3-17.3); White Blood Count 9.5 T/CUMM (4-12)
[2018-05-02 03:57] LABS: Albumin 3.2 G/DL (3.4-5.0); Bilirubin,Direct 0.29 MG/DL (0.0-0.20); Bilirubin,Indirect 0.3 MG/DL (0.0-1.0); Bilirubin,Total 0.6 MG/DL (0.2-1.0); CKMB % 3.6 %; Calcium 8.4 MG/DL (8.5-10.1); Osmolality,Calculated 283.4 MOS/KG (273-304); Potassium 4.8 MMOL/L (3.5-5.1); Total Protein 6.6 G/DL (6.4-8.3)
[2018-05-02] MEDS: INSULIN REGULAR 100 UNIT/ML SUBCUT SCH ×5 (03:57→22:12)
[2018-05-02 04:00] LABS: Troponin I 5.57 NG/ML (0.00-0.045)
[2018-05-02] MEDS ORDERED: FUROSEMIDE 40 MG/4 ML VIAL IV ONE (06:00)
[2018-05-02] MEDS: INSULIN LISPRO 100 UNIT/ML SUBCUT SCH ×4 (07:59→22:02)
[2018-05-02] MEDS ORDERED: INSULIN GLARGINE 100 UNIT/ML SUBCUT SCH ×2 (08:35→09:00)
[2018-05-02] MEDS ORDERED: NEBIVOLOL 10 MG TABLET PO SCH (09:00)
[2018-05-02] MEDS ORDERED: hydrALAZINE 25 MG TABLET PO SCH (09:00)
[2018-05-02] MEDS: FERROUS SULFATE 325 MG TABLET PO SCH (09:01)
[2018-05-02] MEDS: ASPIRIN EC 325 MG TABLET PO SCH (09:02)
[2018-05-02] MEDS: PANTOPRAZOLE 40 MG TABLET PO SCH (09:02)
[2018-05-02] MEDS: AMIODARONE 200 MG TABLET PO SCH ×2 (09:02→22:02)
[2018-05-02] MEDS: DOCUSATE SODIUM 100 MG CAPSULE PO SCH (09:02)
[2018-05-02] MEDS: CARVEDILOL 3.125 MG TABLET PO SCH ×2 (09:02→22:02)
[2018-05-02] MEDS: INSULIN GLARGINE 100 UNIT/ML SUBCUT SCH ×2 (09:13→22:03)
[2018-05-02] MEDS: CHLORHEXIDINE 0.12% ORAL RINSE 60 ML BOTTLE SWISH/SPIT SCH ×2 (09:13→22:13)
[2018-05-02] MEDS: CLOBETASOL PROPIONATE TOP SCH (09:17)
[2018-05-02] MEDS: oxyCODONE/ACETAMINOPHEN 5-325 MG TABLET PO PRN (11:21)
[2018-05-02] MEDS: KETOROLAC 30 MG/1 ML VIAL IV PRN ×2 (14:40→22:36)
[2018-05-02] MEDS: hydrALAZINE 25 MG TABLET PO SCH (22:02)
[2018-05-02] MEDS: ROSUVASTATIN 20 MG TABLET PO SCH (22:13)
[2018-05-03] MEDS: INSULIN REGULAR 100 UNIT/ML SUBCUT SCH ×6 (00:13→20:13)
[2018-05-03] MEDS: ALBUTEROL/IPRATROPIUM 3 ML NEB RESP TX SCH ×5 (03:22→19:47)
[2018-05-03 04:45] LABS: Basophils % 0.3 % (0.0-0.8); Eosinophils # 0.1 10*3/uL (0.0-0.87); Eosinophils % 0.9 % (0.00-10.9); Immature Granulocytes % 1.3 %; Lymphocytes # 1.6 10*3/uL (1.4-4.0); Lymphocytes % 20.7 % (21.2-54.2); Mean Corpuscular HGB Conc 33.3 GM/DL (32-36); Mean Corpuscular Hemoglobin 29 PG (27-34); Mean Corpuscular Volume 86.7 FL (87-102); Mean Platelet Volume 11.5 FL (9.6-12.0); Monocytes # 0.9 10*3/uL (0.11-0.8); Monocytes % 11.7 % (1.7-12.7); NRBC # 0.07 10*3/uL; Neutrophils # 5.1 10*3/uL (1.4-7.4); Neutrophils % 65.1 % (38.7-73.9); Platelet Count 152 T/CUMM (130-400); Red Blood Count 3.46 MC/CUMM (3.8-5.5); Red Cell Distribution Width 14.6 % (9.3-17.3); White Blood Count 7.9 T/CUMM (4-12)
[2018-05-03 05:04] LABS: Albumin 2.9 G/DL (3.4-5.0); Bilirubin,Direct 0.15 MG/DL (0.0-0.20); Bilirubin,Indirect 0.4 MG/DL (0.0-1.0); Bilirubin,Total 0.5 MG/DL (0.2-1.0); CKMB % 2.2 %; Calcium 8.5 MG/DL (8.5-10.1); Osmolality,Calculated 281.1 MOS/KG (273-304); Potassium 3.6 MMOL/L (3.5-5.1); Total Protein 5.7 G/DL (6.4-8.3)
[2018-05-03 05:17] LABS: Troponin I 4.98 NG/ML (0.00-0.045)
[2018-05-03] MEDS: KETOROLAC 30 MG/1 ML VIAL IV PRN ×3 (06:40→21:43)
[2018-05-03] MEDS: PANTOPRAZOLE 40 MG TABLET PO SCH (08:44)
[2018-05-03] MEDS: ASPIRIN EC 325 MG TABLET PO SCH (08:44)
[2018-05-03] MEDS: AMIODARONE 200 MG TABLET PO SCH ×2 (08:45→21:43)
[2018-05-03] MEDS: hydrALAZINE 25 MG TABLET PO SCH ×2 (08:45→21:43)
[2018-05-03] MEDS: ISOSORBIDE MONONITRATE 30 MG TABLET PO SCH (08:47)
[2018-05-03] MEDS: FERROUS SULFATE 325 MG TABLET PO SCH (08:48)
[2018-05-03] MEDS: CARVEDILOL 3.125 MG TABLET PO SCH (08:48)
[2018-05-03] MEDS: DOCUSATE SODIUM 100 MG CAPSULE PO SCH (08:48)
[2018-05-03] MEDS: INSULIN LISPRO 100 UNIT/ML SUBCUT SCH ×4 (08:49→20:16)
[2018-05-03] MEDS: CHLORHEXIDINE 0.12% ORAL RINSE 60 ML BOTTLE SWISH/SPIT SCH ×2 (08:50→21:44)
[2018-05-03] MEDS ORDERED: CARVEDILOL 3.125 MG TABLET PO ONE (09:55)
[2018-05-03] MEDS: INSULIN GLARGINE 100 UNIT/ML SUBCUT SCH ×2 (10:56→21:44)
[2018-05-03] MEDS: CLOBETASOL PROPIONATE TOP SCH (11:29)
[2018-05-03] MEDS: CARVEDILOL 6.25 MG TABLET PO SCH (21:43)
[2018-05-03] MEDS: ROSUVASTATIN 20 MG TABLET PO SCH (21:43)
[2018-05-04] MEDS: ALBUTEROL/IPRATROPIUM 3 ML NEB RESP TX SCH ×7 (00:04→22:31)
[2018-05-04] MEDS: INSULIN REGULAR 100 UNIT/ML SUBCUT SCH ×6 (00:21→22:38)
[2018-05-04] MEDS: KETOROLAC 30 MG/1 ML VIAL IV PRN ×3 (04:12→18:37)
[2018-05-04] MEDS: hydrALAZINE 25 MG TABLET PO SCH ×2 (08:45→22:38)
[2018-05-04] MEDS: CARVEDILOL 6.25 MG TABLET PO SCH ×2 (08:45→22:38)
[2018-05-04] MEDS: PANTOPRAZOLE 40 MG TABLET PO SCH (08:45)
[2018-05-04] MEDS: AMIODARONE 200 MG TABLET PO SCH ×2 (08:46→22:37)
[2018-05-04] MEDS: ISOSORBIDE MONONITRATE 30 MG TABLET PO SCH (08:46)
[2018-05-04] MEDS: FERROUS SULFATE 325 MG TABLET PO SCH (08:46)
[2018-05-04] MEDS: ASPIRIN EC 325 MG TABLET PO SCH (08:46)
[2018-05-04] MEDS: DOCUSATE SODIUM 100 MG CAPSULE PO SCH (08:46)
[2018-05-04] MEDS: CHLORHEXIDINE 0.12% ORAL RINSE 60 ML BOTTLE SWISH/SPIT SCH ×2 (08:47→22:41)
[2018-05-04] MEDS: INSULIN GLARGINE 100 UNIT/ML SUBCUT SCH ×2 (08:52→22:43)
[2018-05-04] MEDS: CLOBETASOL PROPIONATE TOP SCH (08:54)
[2018-05-04] MEDS: INSULIN LISPRO 100 UNIT/ML SUBCUT SCH ×4 (09:02→22:43)
[2018-05-04] MEDS: NF- (Dulaglutide [Trulicity] 1.5 MG) SUBCUT SCH (12:40)
[2018-05-04] MEDS: ROSUVASTATIN 20 MG TABLET PO SCH (22:38)
[2018-05-04] MEDS: oxyCODONE/ACETAMINOPHEN 5-325 MG TABLET PO PRN (22:43)
[2018-05-05] MEDS: INSULIN REGULAR 100 UNIT/ML SUBCUT SCH ×4 (01:29→12:51)
[2018-05-05] MEDS: ALBUTEROL/IPRATROPIUM 3 ML NEB RESP TX SCH ×3 (02:37→10:34)
[2018-05-05 05:31] LABS: Basophils % 0.7 % (0.0-0.8); Eosinophils # 0.5 10*3/uL (0.0-0.87); Eosinophils % 8.6 % (0.00-10.9); Hematocrit 27.6 VOL% (42.0-52.0); Hemoglobin 8.9 GM/DL (14.0-18.0); Immature Granulocytes % 2.7 %; Immature Granulocytes Absolute 0.15 #; Lymphocytes % 18.3 % (21.2-54.2); Mean Corpuscular HGB Conc 32.2 GM/DL (32-36); Mean Corpuscular Hemoglobin 28 PG (27-34); Mean Corpuscular Volume 88.2 FL (87-102); Mean Platelet Volume 10.7 FL (9.6-12.0); Monocytes # 0.9 10*3/uL (0.11-0.8); Monocytes % 16.3 % (1.7-12.7); Neutrophils % 53.4 % (38.7-73.9); Platelet Count 186 T/CUMM (130-400); Red Blood Count 3.13 MC/CUMM (3.8-5.5); Red Cell Distribution Width 14.9 % (9.3-17.3); White Blood Count 5.6 T/CUMM (4-12)
[2018-05-05 05:59] LABS: Alanine Aminotransferase 249 U/L (16-61); Albumin 2.7 G/DL (3.4-5.0); Alkaline Phosphatase 49 U/L (45-117); Aspartate Amino Transferase 105 U/L (0-37); Bilirubin,Indirect 0.9 MG/DL (0.0-1.0); Blood Urea Nitrogen 38 MG/DL (7-18); Glucose 110 MG/DL (74-106); Osmolality,Calculated 282.8 MOS/KG (273-304); Sodium 137 MMOL/L (136-145); Total Protein 5.7 G/DL (6.4-8.3)
[2018-05-05 07:05] LABS: Atypical Lymphocytes Few; Band Neutrophils 1 % (0-10); Eosinophils 6 % (0-10); Hypochromasia 1+; Lymphocytes 22 % (20-55); Microcytosis 1+; Segmented Neutrophils 53 % (50-85); Total Cells Counted 100
[2018-05-05 07:06] LABS: Platelet Estimate Adequate
[2018-05-05] MEDS: CARVEDILOL 6.25 MG TABLET PO SCH (09:17)
[2018-05-05] MEDS: PANTOPRAZOLE 40 MG TABLET PO SCH (09:18)
[2018-05-05] MEDS: DOCUSATE SODIUM 100 MG CAPSULE PO SCH (09:18)
[2018-05-05] MEDS: ASPIRIN EC 325 MG TABLET PO SCH (09:18)
[2018-05-05] MEDS: FERROUS SULFATE 325 MG TABLET PO SCH (09:18)
[2018-05-05] MEDS: AMIODARONE 200 MG TABLET PO SCH (09:18)
[2018-05-05] MEDS: hydrALAZINE 25 MG TABLET PO SCH (09:18)
[2018-05-05] MEDS: oxyCODONE/ACETAMINOPHEN 5-325 MG TABLET PO PRN (09:18)
[2018-05-05] MEDS: ISOSORBIDE MONONITRATE 30 MG TABLET PO SCH (09:18)
[2018-05-05] MEDS: INSULIN LISPRO 100 UNIT/ML SUBCUT SCH ×2 (09:19→12:52)
[2018-05-05] MEDS: CLOBETASOL PROPIONATE TOP SCH (09:19)
[2018-05-05] MEDS: INSULIN GLARGINE 100 UNIT/ML SUBCUT SCH (09:19)
[2018-05-05] MEDS: CHLORHEXIDINE 0.12% ORAL RINSE 60 ML BOTTLE SWISH/SPIT SCH (09:25)
[2018-05-05 11:50] VITALS: BP 138/73
== END 2018-05-05 13:40 | disposition home health service (06) | DRG 234 ==
LOC: N.EDINP 20:42 → N.ED 20:42 → N.TELES 23:55 → SUATTDRO 04-26 11:33 → N.CVR 04-30 07:00 → N.ICU 05-01 13:36 → N.TELES 05-02 14:02
PROVIDERS: ADMIT Internal Medicine Infectious Disease; ATTEND Internal Medicine

== ENCOUNTER 2018-05-18 16:53 | Inpatient (IN) ==
[2018-05-18] MEDS ORDERED: ONDANSETRON 4 MG/2 ML VIAL IV STA (17:20)
[2018-05-18] MEDS ORDERED: KETOROLAC 30 MG/1 ML VIAL IV STA (17:20)
[2018-05-18] MEDS ORDERED: LEVOFLOXACIN INJ 750 MG in PREMIX 1 EACH IV STA (17:20)
[2018-05-18] MEDS ORDERED: ALBUTEROL/IPRATROPIUM 3 ML NEB RESP TX STA (17:20)
[2018-05-18] MEDS ORDERED: CLINDAMYCIN INJ 900 MG in PREMIX 1 EACH IV STA (17:20)
[2018-05-18] MEDS ORDERED: PANTOPRAZOLE 40 MG VIAL IV STA (17:20)
[2018-05-18 17:58] LABS: Basophils # 0.1 10*3/uL (0.0-0.2); Basophils % 1.1 % (0.0-0.8); Eosinophils # 0.6 10*3/uL (0.0-0.87); Eosinophils % 7.5 % (0.00-10.9); Hematocrit 32.9 VOL% (42.0-52.0); Hemoglobin 10.3 GM/DL (14.0-18.0); Immature Granulocytes % 0.5 %; Immature Granulocytes Absolute 0.04 #; Lymphocytes # 0.8 10*3/uL (1.4-4.0); Lymphocytes % 9.8 % (21.2-54.2); Mean Corpuscular HGB Conc 31.3 GM/DL (32-36); Mean Corpuscular Hemoglobin 27 PG (27-34); Mean Corpuscular Volume 86.6 FL (87-102); Mean Platelet Volume 9.1 FL (9.6-12.0); Monocytes % 11.8 % (1.7-12.7); Neutrophils # 5.8 10*3/uL (1.4-7.4); Neutrophils % 69.3 % (38.7-73.9); Platelet Count 350 T/CUMM (130-400); Red Cell Distribution Width 15.2 % (9.3-17.3); White Blood Count 8.3 T/CUMM (4-12)
[2018-05-18] MEDS ORDERED: FUROSEMIDE 40 MG/4 ML VIAL IV STA (18:08)
[2018-05-18 18:11] LABS: INR 1.1; Partial Thromboplastin Time 27.7 SECS (0-40)
[2018-05-18 18:18] LABS: Alanine Aminotransferase 127 U/L (16-61); Albumin 2.8 G/DL (3.4-5.0); Alkaline Phosphatase 84 U/L (45-117); Aspartate Amino Transferase 95 U/L (0-37); Blood Urea Nitrogen 15 MG/DL (7-18); Calcium 8.5 MG/DL (8.5-10.1); Glucose 112 MG/DL (74-106); Osmolality,Calculated 267.4 MOS/KG (273-304); Potassium 4.5 MMOL/L (3.5-5.1); Sodium 133 MMOL/L (136-145); Total Protein 6.6 G/DL (6.4-8.3)
[2018-05-18 18:22] LABS: Troponin I 0.048 NG/ML (0.00-0.045)
[2018-05-18] MEDS ORDERED: DEXTROSE 50% 25 GM/50 ML SYRINGE IV PRN (20:10)
[2018-05-18] MEDS ORDERED: GLUCAGON 1 MG VIAL IM PRN (20:10)
[2018-05-18] MEDS ORDERED: ENOXAPARIN 40 MG/0.4 ML SYRINGE SUBCUT SCH (21:00)
[2018-05-18 21:37] LABS: Apearance,Urine CLEAR (Clear); Bilirubin,Urine Negative (Negative); Blood, Urine Negative (Negative); Glucose,Urine (UA) Negative (Negative); Ketones,Urine Negative (Negative); Nitrite,Urine Negative (Negative); Protein,Urine Negative; RBC,Urine <1 /HPF (0-4); Urine Color Yellow (Yellow); Urine Specific Gravity 1.019 (1.001-1.035); Urine Urobilinogen < 2.0 EU/DL (0.2-1.0); WBC,Urine <1 /HPF (0-6)
[2018-05-18] MEDS: CLINDAMYCIN 300 MG CAPSULE PO SCH (22:35)
[2018-05-18] MEDS: AMIODARONE 200 MG TABLET PO SCH (22:35)
[2018-05-18] MEDS: CLOPIDOGREL 75 MG TABLET PO SCH (22:35)
[2018-05-18] MEDS: hydrALAZINE 25 MG TABLET PO SCH (22:35)
[2018-05-18] MEDS: CARVEDILOL 6.25 MG TABLET PO SCH (22:35)
[2018-05-18] MEDS: MORPHINE 4 MG/1 ML VIAL IV PRN ×2 (22:35→23:25)
[2018-05-18] MEDS: metFORMIN 500 MG TABLET PO SCH (22:35)
[2018-05-18] MEDS: POTASSIUM CHLORIDE 20 MEQ TABLET PO SCH (22:35)
[2018-05-18] MEDS: ROSUVASTATIN 20 MG TABLET PO SCH (22:35)
[2018-05-18] MEDS: INSULIN GLARGINE 100 UNIT/ML SUBCUT SCH (22:40)
[2018-05-18] MEDS: INSULIN REGULAR 100 UNIT/ML SUBCUT SCH (22:41)
[2018-05-18] MEDS ORDERED: MORPHINE 4 MG/1 ML VIAL IM PRN (23:17)
[2018-05-19] MEDS ORDERED: PNEUMOCOCCAL VACCINE (13 VALENT) 0.5 ML SYRINGE IM ONE (04:00)
[2018-05-19 04:32] LABS: Basophils # 0.1 10*3/uL (0.0-0.2); Eosinophils # 0.5 10*3/uL (0.0-0.87); Eosinophils % 5.5 % (0.00-10.9); Hematocrit 32.3 VOL% (42.0-52.0); Immature Granulocytes % 0.5 %; Immature Granulocytes Absolute 0.04 #; Lymphocytes # 0.8 10*3/uL (1.4-4.0); Lymphocytes % 9.5 % (21.2-54.2); Mean Corpuscular Hemoglobin 27 PG (27-34); Mean Corpuscular Volume 86.4 FL (87-102); Mean Platelet Volume 9.4 FL (9.6-12.0); Monocytes # 1.1 10*3/uL (0.11-0.8); Monocytes % 12.9 % (1.7-12.7); Neutrophils # 6.1 10*3/uL (1.4-7.4); Neutrophils % 70.6 % (38.7-73.9); Platelet Count 348 T/CUMM (130-400); Red Blood Count 3.74 MC/CUMM (3.8-5.5); Red Cell Distribution Width 15.2 % (9.3-17.3); White Blood Count 8.6 T/CUMM (4-12)
[2018-05-19 05:10] LABS: Calcium 8.5 MG/DL (8.5-10.1); Osmolality,Calculated 269.2 MOS/KG (273-304); Potassium 4.7 MMOL/L (3.5-5.1); Thyroid Stimulating Hormone 6.76 uIU/ml (0.358-3.74)
[2018-05-19] MEDS ORDERED: MAGNESIUM SULF RIDER 2 GM in PREMIX 1 EACH IV PRN (05:47)
[2018-05-19] MEDS ORDERED: MAGNESIUM SULF RIDER 4 GM in PREMIX 1 EACH IV PRN (05:47)
[2018-05-19] MEDS: MORPHINE 4 MG/1 ML VIAL IV PRN ×3 (06:00→21:56)
[2018-05-19] MEDS: INSULIN REGULAR 100 UNIT/ML SUBCUT SCH ×4 (08:12→21:45)
[2018-05-19] MEDS: FERROUS SULFATE 325 MG TABLET PO SCH (08:55)
[2018-05-19] MEDS: hydrALAZINE 25 MG TABLET PO SCH ×3 (08:55→21:43)
[2018-05-19] MEDS: POTASSIUM CHLORIDE 20 MEQ TABLET PO SCH ×2 (08:55→21:42)
[2018-05-19] MEDS: FUROSEMIDE 40 MG/4 ML VIAL IV SCH ×2 (08:55→16:32)
[2018-05-19] MEDS: LEVOFLOXACIN 500 MG TABLET PO SCH (08:55)
[2018-05-19] MEDS: PANTOPRAZOLE 40 MG TABLET PO SCH (08:55)
[2018-05-19] MEDS: CARVEDILOL 6.25 MG TABLET PO SCH ×2 (08:55→21:42)
[2018-05-19] MEDS: AMIODARONE 200 MG TABLET PO SCH ×2 (08:55→21:42)
[2018-05-19] MEDS: CLINDAMYCIN 300 MG CAPSULE PO SCH ×4 (08:55→21:42)
[2018-05-19] MEDS ORDERED: ASPIRIN EC 325 MG TABLET PO SCH ×2 (09:00→10:28)
[2018-05-19] MEDS: INSULIN GLARGINE 100 UNIT/ML SUBCUT SCH ×2 (09:05→21:53)
[2018-05-19] MEDS: CYCLOBENZAPRINE 10 MG TABLET PO SCH ×3 (09:44→21:42)
[2018-05-19] MEDS: ALUMINUM/MAGNES/SIMETH MAX STR 30 ML UDCUP PO PRN ×2 (10:06→15:55)
[2018-05-19] MEDS: APIXABAN 5 MG TABLET PO SCH (21:42)
[2018-05-19] MEDS: CLOPIDOGREL 75 MG TABLET PO SCH (21:42)
[2018-05-19] MEDS: ROSUVASTATIN 20 MG TABLET PO SCH (21:42)
[2018-05-20] MEDS: FUROSEMIDE 40 MG/4 ML VIAL IV SCH ×2 (08:57→16:29)
[2018-05-20] MEDS: INSULIN REGULAR 100 UNIT/ML SUBCUT SCH ×4 (08:57→21:23)
[2018-05-20] MEDS: INSULIN GLARGINE 100 UNIT/ML SUBCUT SCH ×2 (08:58→21:25)
[2018-05-20] MEDS: ASPIRIN EC 81 MG TABLET PO SCH (08:58)
[2018-05-20] MEDS: hydrALAZINE 25 MG TABLET PO SCH ×3 (08:58→21:23)
[2018-05-20] MEDS: CYCLOBENZAPRINE 10 MG TABLET PO SCH ×3 (08:59→21:23)
[2018-05-20] MEDS: AMIODARONE 200 MG TABLET PO SCH ×2 (08:59→21:23)
[2018-05-20] MEDS: POTASSIUM CHLORIDE 20 MEQ TABLET PO SCH ×2 (08:59→21:23)
[2018-05-20] MEDS: APIXABAN 5 MG TABLET PO SCH ×2 (08:59→21:23)
[2018-05-20] MEDS: PANTOPRAZOLE 40 MG TABLET PO SCH (08:59)
[2018-05-20] MEDS: CARVEDILOL 6.25 MG TABLET PO SCH ×2 (08:59→21:23)
[2018-05-20] MEDS: LEVOFLOXACIN 500 MG TABLET PO SCH (08:59)
[2018-05-20] MEDS: FERROUS SULFATE 325 MG TABLET PO SCH (09:00)
[2018-05-20] MEDS: CLINDAMYCIN INJ 600 MG in PREMIX 1 EACH IV SCH ×3 (09:05→21:40)
[2018-05-20] MEDS: MORPHINE 4 MG/1 ML VIAL IV PRN ×2 (13:33→21:24)
[2018-05-20] MEDS: metFORMIN 500 MG TABLET PO SCH (21:22)
[2018-05-20] MEDS: ROSUVASTATIN 20 MG TABLET PO SCH (21:23)
[2018-05-20] MEDS: CLOPIDOGREL 75 MG TABLET PO SCH (21:23)
[2018-05-21] MEDS: CLINDAMYCIN INJ 600 MG in PREMIX 1 EACH IV SCH ×2 (04:00→08:33)
[2018-05-21] MEDS: MORPHINE 4 MG/1 ML VIAL IV PRN (04:25)
[2018-05-21 07:53] VITALS: BP 112/59
[2018-05-21] MEDS: INSULIN REGULAR 100 UNIT/ML SUBCUT SCH ×2 (08:18→13:43)
[2018-05-21] MEDS: INSULIN GLARGINE 100 UNIT/ML SUBCUT SCH (08:23)
[2018-05-21] MEDS: POTASSIUM CHLORIDE 20 MEQ TABLET PO SCH (08:25)
[2018-05-21] MEDS: LEVOFLOXACIN 500 MG TABLET PO SCH (08:26)
[2018-05-21] MEDS: FERROUS SULFATE 325 MG TABLET PO SCH (08:26)
[2018-05-21] MEDS: PANTOPRAZOLE 40 MG TABLET PO SCH (08:27)
[2018-05-21] MEDS: CYCLOBENZAPRINE 10 MG TABLET PO SCH (08:27)
[2018-05-21] MEDS: AMIODARONE 200 MG TABLET PO SCH (08:27)
[2018-05-21] MEDS: CARVEDILOL 6.25 MG TABLET PO SCH (08:28)
[2018-05-21] MEDS: ASPIRIN EC 81 MG TABLET PO SCH (08:28)
[2018-05-21] MEDS: FUROSEMIDE 40 MG/4 ML VIAL IV SCH (08:32)
[2018-05-21] MEDS: hydrALAZINE 25 MG TABLET PO SCH (10:10)
[2018-05-21] MEDS: APIXABAN 5 MG TABLET PO SCH (10:11)
== END 2018-05-21 13:46 | disposition home health service (06) | DRG 602 ==
LOC: N.EDINP 16:53 → N.ED 16:53 → SUATTDRO 20:02 → N.TELEN 20:47
PROVIDERS: ADMIT Internal Medicine Nephrology; ATTEND Internal Medicine

== ENCOUNTER 2021-10-13 15:54 | Observation (INO) ==
[2021-10-13] MEDS ORDERED: hydrALAZINE 20 MG/1 ML VIAL IV PRN (15:59)
[2021-10-13] MEDS ORDERED: CALCIUM CARBONATE CHEW 500 MG TABLET PO PRN (15:59)
[2021-10-13] MEDS ORDERED: ZALEPLON 5 MG CAPSULE PO PRN (15:59)
[2021-10-13] MEDS ORDERED: GLUCAGON 1 MG VIAL IM PRN (15:59)
[2021-10-13] MEDS ORDERED: BISACODYL 5 MG TABLET PO PRN (15:59)
[2021-10-13] MEDS ORDERED: LACTULOSE 20 GM/30 ML UDCUP PO PRN (15:59)
[2021-10-13] MEDS ORDERED: ONDANSETRON 4 MG/2 ML VIAL IV PRN (15:59)
[2021-10-13] MEDS ORDERED: MORPHINE 2 MG/1 ML SYRINGE IV PRN (15:59)
[2021-10-13] MEDS ORDERED: DOCUSATE SODIUM 100 MG CAPSULE PO PRN (15:59)
[2021-10-13] MEDS ORDERED: ACETAMINOPHEN 325 MG TABLET PO PRN (15:59)
[2021-10-13] MEDS ORDERED: SIMETHICONE CHEW 125 MG TABLET PO PRN (15:59)
[2021-10-13] MEDS ORDERED: ALUMINUM/MAGNES/SIMETH MAX STR 30 ML UDCUP PO PRN (15:59)
[2021-10-13] MEDS ORDERED: DEXTROSE 10% 250 ML BAG IV PRN (16:29)
[2021-10-13 16:55] LABS: Basophils # 0.1 10*3/uL (0.0-0.2); Basophils % 1.3 % (0.0-0.8); Eosinophils # 0.9 10*3/uL (0.0-0.87); Eosinophils % 14.9 % (0.00-10.9); Hematocrit 40.4 VOL% (42.0-52.0); Hemoglobin 13.5 GM/DL (14.0-18.0); Immature Granulocytes % 0.3 %; Immature Granulocytes Absolute 0.02 #; Lymphocytes % 31.7 % (21.2-54.2); Mean Corpuscular HGB Conc 33.4 GM/DL (32-36); Mean Corpuscular Volume 83.8 FL (87-102); Mean Platelet Volume 9.9 FL (9.6-12.0); Monocytes # 0.7 10*3/uL (0.11-0.8); Neutrophils % 39.8 % (38.7-73.9); Platelet Count 206 T/CUMM (130-400); Red Blood Count 4.82 MC/CUMM (3.8-5.5); Red Cell Distribution Width 14.6 % (9.3-17.3); White Blood Count 6.2 T/CUMM (4-12)
[2021-10-13] MEDS: INSULIN LISPRO 100 UNIT/ML SUBCUT SCH ×2 (17:10→20:47)
[2021-10-13 17:23] LABS: Albumin 3.8 G/DL (3.4-5.0); Bilirubin,Total 0.5 MG/DL (0.20-1.00); Calcium 8.6 MG/DL (8.5-10.1); Potassium 4.1 MMOL/L (3.5-5.1); Thyroid Stimulating Hormone 6.37 uIU/ml (0.358-3.74); Total Protein 6.9 G/DL (6.4-8.2)
[2021-10-13 17:32] LABS: Band Neutrophils 1 % (0-10); Eosinophils 17 % (0-10); Lymphocytes 28 % (20-55); Platelet Estimate Adequate; Total Cells Counted 100
[2021-10-13] MEDS ORDERED: ENOXAPARIN 100 MG/ML SYRINGE SUBCUT ONE (18:00)
[2021-10-13] MEDS: KETOROLAC 30 MG/1 ML VIAL IV SCH (18:39)
[2021-10-13] MEDS: hydrALAZINE 25 MG TABLET PO SCH (20:45)
[2021-10-13] MEDS: carvediloL 6.25 MG TABLET PO SCH (20:47)
[2021-10-13] MEDS ORDERED: ROSUVASTATIN 20 MG TABLET PO SCH (21:00)
[2021-10-13] MEDS ORDERED: AMIODARONE 200 MG TABLET PO SCH (21:00)
[2021-10-13 23:14] LABS: Mucus,Urine Occasional /LPF (Occasional); Squamous Epithelial Cell,Urine Occasional /HPF (0-10)
[2021-10-13 23:15] LABS: Bilirubin,Urine Negative (Negative); Blood, Urine Negative (Negative); Glucose,Urine (UA) 500 mg/dL (Negative); Ketones,Urine Negative (Negative); Nitrite,Urine Negative (Negative); Protein,Urine Trace mg/dL (Negative); Urine Appearance Clear (Clear); Urine Color Yellow (Yellow); Urine Specific Gravity 1.015 (1.001-1.035); Urine Urobilinogen 0.2 eU/dL (<2.0); Urine pH 5.5 (4.5-8.0)
[2021-10-14] MEDS: KETOROLAC 30 MG/1 ML VIAL IV SCH ×3 (00:01→12:05)
[2021-10-14 05:51] LABS: Basophils # 0.1 10*3/uL (0.0-0.2); Basophils % 1.1 % (0.0-0.8); Eosinophils # 0.9 10*3/uL (0.0-0.87); Eosinophils % 12.8 % (0.00-10.9); Hematocrit 36.5 VOL% (42.0-52.0); Hemoglobin 12.5 GM/DL (14.0-18.0); Immature Granulocytes % 0.6 %; Immature Granulocytes Absolute 0.04 #; Lymphocytes # 1.7 10*3/uL (1.4-4.0); Lymphocytes % 24.3 % (21.2-54.2); Mean Corpuscular HGB Conc 34.2 GM/DL (32-36); Mean Corpuscular Volume 83.7 FL (87-102); Monocytes # 0.8 10*3/uL (0.11-0.8); Monocytes % 10.8 % (1.7-12.7); Neutrophils % 50.4 % (38.7-73.9); Platelet Count 159 T/CUMM (130-400); Red Blood Count 4.36 MC/CUMM (3.8-5.5); Red Cell Distribution Width 14.2 % (9.3-17.3)
[2021-10-14 06:15] LABS: Eosinophils 20 % (0-10); Lymphocytes 18 % (20-55); Microcytosis Slight; Total Cells Counted 100
[2021-10-14 06:16] LABS: Platelet Estimate Adequate
[2021-10-14 06:17] LABS: Calcium 8.3 MG/DL (8.5-10.1); Risk Ratio 3.79
[2021-10-14] MEDS ORDERED: PANTOPRAZOLE 40 MG TABLET PO SCH (06:30)
[2021-10-14] MEDS ORDERED: amLODIPine 5 MG TABLET PO SCH (09:00)
[2021-10-14] MEDS ORDERED: ASPIRIN EC 81 MG TABLET PO SCH (09:00)
[2021-10-14] MEDS ORDERED: OLOPATADINE 0.2% BOTH EYES SCH (09:00)
[2021-10-14] MEDS ORDERED: CETIRIZINE 10 MG TABLET PO SCH (09:00)
[2021-10-14] MEDS: INSULIN LISPRO 100 UNIT/ML SUBCUT SCH ×2 (09:02→12:05)
[2021-10-14] MEDS: carvediloL 6.25 MG TABLET PO SCH (09:57)
[2021-10-14] MEDS: hydrALAZINE 25 MG TABLET PO SCH (09:58)
[2021-10-14 12:18] VITALS: BP 135/73
[2021-10-15] MEDS ORDERED: DULAGLUTIDE 4.5 MG/0.5 ML SUBCUT SCH (09:00)
== END 2021-10-14 12:24 | disposition home or self-care (01) ==
LOC: N.TELEN
PROVIDERS: ADMIT Internal Medicine Interventional Cardiology; ATTEND Internal Medicine Interventional Cardiology